=== PATIENT | female | born 1950 | race African-American/Black ===

== ENCOUNTER 2017-02-03 11:36 | Day surgery (SDC) | payer MEDICARE, MEDICAID ==
[~2017-02-03 11:36] MED LIST: LOPRESSOR25 MG PO; METHOTREXATE2.5 MG PO; PROZAC20 MG PO
[2017-02-03 14:55] LABS: BASOPHILS 0.2 % (0-2); EOSINOPHILS 4.8 % (0-7); HEMATOCRIT 38.4 % (36.0-48.0); HEMOGLOBIN 11.8 g/dL (12-16); IMMATURE GRANULOCYTES 0.2 % (0-5); LYMPHOCYTES 25.1 % (15-50); MCHC 30.7 g/dL (31.0-37.0); MEAN PLATELET VOLUME 10.3 fL (7.4-10.4); MONOCYTES 11.8 % (2-11); NEUTROPHILS 57.9 % (40-80); PLATELET COUNT 222 10x3/uL (130-400); RBC 4.22 10x6/uL (4.00-5.40); RDW 16.8 % (11.5-14.5); WBC 5.3 10x3/uL (4.8-10.8)
[2017-02-03 15:07] LABS: CALC OSMOLALITY 270 mosm/kg (275-300); CALCIUM 8.8 mg/dL (8.5-10.1); CHLORIDE - SERUM 103 mmol/L (98-107); CREATININE - SERUM 0.2 mg/dL (0.6-1.3); GLUCOSE 98 mg/dL (74-106); POTASSIUM - SERUM 5.1 mmol/L (3.5-5.1); SODIUM 137 mmol/L (136-145); UREA NITROGEN 5 mg/dL (7-18); eGFR NON AFRICAN AMERICAN > 90 mL/min (90-120)
== END 2017-02-03 16:45 | disposition home or self-care (01) ==
LOC: D.OPS 11:36
PROVIDERS: Anesthesiology
DX: Z12.11 Encounter for screening for malignant neoplasm of colon (principal); D12.2 Benign neoplasm of ascending colon; D12.3 Benign neoplasm of transverse colon; K57.30 Diverticulosis of large intestine without perforation or abscess without bleeding; K62.6 Ulcer of anus and rectum; I10 Essential (primary) hypertension; E66.01 Morbid (severe) obesity due to excess calories; Z68.37 Body mass index [BMI] 37.0-37.9, adult; Z01.812 Encounter for preprocedural laboratory examination

== ENCOUNTER 2018-05-13 18:12 | Inpatient (IN) | payer MEDICARE ==
[~2018-05-13] VITALS: Ht 180.3 cm; Wt 113.4 kg
[2018-05-13 19:35] LABS: BASOPHILS 0.1 % (0-2); EOSINOPHILS 0.1 % (0-7); HEMOGLOBIN 11.2 g/dL (12-16); IMMATURE GRANULOCYTES 0.7 % (0-5); LYMPHOCYTES 13.4 % (15-50); MCH 27.7 pg (26.0-34.0); MCHC 31.1 g/dL (31.0-37.0); MCV 89.1 fL (80.0-100.0); MEAN PLATELET VOLUME 10.2 fL (7.4-10.4); NEUTROPHILS 82.7 % (40-80); PLATELET COUNT 255 10x3/uL (130-400); RBC 4.04 10x6/uL (4.00-5.40); RDW 16.4 % (11.5-14.5); WBC 8.8 10x3/uL (4.8-10.8)
[2018-05-13 19:45] LABS: APTT 29.2 SECONDS (22.8-39.4); INR 1.21 (0.85-1.17); PROTIME 14.9 SECONDS (11.6-15.0)
[2018-05-13 19:46] LABS: D-DIMER-QUANTITATIVE 1.27 ug/mLFEU (0.20-0.54)
[2018-05-13 19:48] LABS: ALBUMIN 2.4 g/dL (3.4-5.0); ALKALINE PHOSPHATASE 62 U/L (46-116); ALT (SGPT) 9 U/L (10-68); BILIRUBIN - TOTAL 0.47 mg/dL (0.2-1.3); CALC OSMOLALITY 270 mosm/kg (275-300); CALCIUM 7.7 mg/dL (8.5-10.1); CHLORIDE - SERUM 101 mmol/L (98-107); CREATININE - SERUM 0.3 mg/dL (0.6-1.3); GLUCOSE 124 mg/dL (74-106); PROTEIN - SERUM 7.4 g/dL (6.4-8.2); SODIUM 136 mmol/L (136-145); UREA NITROGEN 8 mg/dL (7-18); eGFR NON AFRICAN AMERICAN > 90 mL/min (90-120)
[2018-05-13 19:59] LABS: CKMB 0.6 U/L (0.0-3.6); CREATINE KINASE 50 UL (21-215)
[2018-05-13 20:00] LABS: TROPONIN-I < 0.017 ng/mL (0.000-0.060)
[2018-05-13 20:53] VITALS: BP 106/64
[2018-05-13 22:58] VITALS: BP 157/106; BMI 34.9
[2018-05-14] VITALS: BP 157/106
[2018-05-14 04:00] VITALS: BP 121/54
[2018-05-14 07:45] VITALS: BP 139/64
[2018-05-14 11:26] VITALS: BP 137/70
[2018-05-14 12:24] LABS: % SATURATION 10 % (15-55); IRON 13 ug/dl (35-150); TOTAL IRON BIND CAPACITY 120 ug/dl (260-445); UNSAT IRON BIND CAPACITY 107 ug/dl (150-375)
[2018-05-14 15:06] VITALS: BP 117/60
[2018-05-14 20:08] VITALS: BP 121/61
[2018-05-15 02:34] VITALS: BP 146/70
[2018-05-15 05:55] LABS: BASOPHILS 0.1 % (0-2); EOSINOPHILS 3.7 % (0-7); HEMATOCRIT 32.2 % (36.0-48.0); HEMOGLOBIN 9.8 g/dL (12-16); IMMATURE GRANULOCYTES 0.1 % (0-5); LYMPHOCYTES 12.6 % (15-50); MCH 27.8 pg (26.0-34.0); MCHC 30.4 g/dL (31.0-37.0); MONOCYTES 7.1 % (2-11); NEUTROPHILS 76.4 % (40-80); PLATELET COUNT 224 10x3/uL (130-400); RBC 3.53 10x6/uL (4.00-5.40); RDW 16.3 % (11.5-14.5); WBC 7.8 10x3/uL (4.8-10.8)
[2018-05-15 06:12] LABS: CALC OSMOLALITY 270 mosm/kg (275-300); CALCIUM 7.9 mg/dL (8.5-10.1); CARBON DIOXIDE 30.3 mmol/L (21.0-32.0); CHLORIDE - SERUM 103 mmol/L (98-107); CREATININE - SERUM 0.3 mg/dL (0.6-1.3); GLUCOSE 111 mg/dL (74-106); POTASSIUM - SERUM 3.9 mmol/L (3.5-5.1); SODIUM 136 mmol/L (136-145); UREA NITROGEN 6 mg/dL (7-18); eGFR NON AFRICAN AMERICAN > 90 mL/min (90-120)
[2018-05-15 06:28] VITALS: BP 115/60
[2018-05-15 06:32] LABS: MCV 91.2 fL (80.0-100.0)
[2018-05-15 08:32] VITALS: BP 133/70
[2018-05-15 11:30] VITALS: BP 134/54
[2018-05-15 16:51] VITALS: BP 144/70
[2018-05-15 19:55] VITALS: BP 128/58
[2018-05-16 00:54] VITALS: BP 126/58
[2018-05-16 04:00] VITALS: BP 128/64
[2018-05-16 05:29] LABS: BASOPHILS 0.4 % (0-2); EOSINOPHILS 6.7 % (0-7); HEMATOCRIT 32.2 % (36.0-48.0); HEMOGLOBIN 9.7 g/dL (12-16); IMMATURE GRANULOCYTES 0.2 % (0-5); LYMPHOCYTES 21.1 % (15-50); MCH 27.5 pg (26.0-34.0); MCHC 30.1 g/dL (31.0-37.0); MCV 91.2 fL (80.0-100.0); MEAN PLATELET VOLUME 10.1 fL (7.4-10.4); MONOCYTES 9.9 % (2-11); NEUTROPHILS 61.7 % (40-80); PLATELET COUNT 247 10x3/uL (130-400); RBC 3.53 10x6/uL (4.00-5.40); RDW 16.1 % (11.5-14.5)
[2018-05-16 05:31] LABS: WBC 5.4 10x3/uL (4.8-10.8)
[2018-05-16 05:47] LABS: CALC OSMOLALITY 276 mosm/kg (275-300); CARBON DIOXIDE 32.1 mmol/L (21.0-32.0); CHLORIDE - SERUM 104 mmol/L (98-107); GLUCOSE 124 mg/dL (74-106); POTASSIUM - SERUM 3.7 mmol/L (3.5-5.1); SODIUM 139 mmol/L (136-145); UREA NITROGEN 6 mg/dL (7-18)
[2018-05-16 05:50] LABS: CREATININE - SERUM 0.4 mg/dL (0.6-1.3); eGFR NON AFRICAN AMERICAN > 90 mL/min (90-120)
[2018-05-16 07:30] LABS: FOLATE (FOLIC ACID) - SERUM >20.0 ng/mL (>3.0)
[2018-05-16 08:45] VITALS: BP 125/68
[2018-05-16 11:22] LABS: APPEARANCE HAZY (CLEAR); BACTERIA FEW /hpf (NONE SEEN); BILIRUBIN NEGATIVE (NEGATIVE); COLOR DK YELLOW (YELLOW); EPITHELIAL CELLS OCC /hpf (0-5); GLUCOSE NEGATIVE (NEGATIVE); KETONE SMALL mg/dL (NEGATIVE); NITRITE NEGATIVE (NEGATIVE); PROTEIN NEGATIVE (NEGATIVE); RED CELLS - URINE OCC /hpf (0-5); SPECIFIC GRAVITY 1.015 (1.005-1.020); WHITE CELLS - URINE RARE /hpf (0-5)
[2018-05-16 11:23] LABS: MUCUS <1+ /lpf (NONE SEEN)
[2018-05-16 12:36] VITALS: BP 126/67
[2018-05-16 13:19] VITALS: Ht 180.3 cm; Wt 113.4 kg
[2018-05-16 16:36] VITALS: BP 128/63
[2018-05-16 20:23] VITALS: BP 144/81
[2018-05-17 04:00] VITALS: BP 127/70
[2018-05-17 08:47] LABS: BASOPHILS 0.4 % (0-2); EOSINOPHILS 3.6 % (0-7); HEMATOCRIT 33.1 % (36.0-48.0); IMMATURE GRANULOCYTES 0.6 % (0-5); MCH 27.3 pg (26.0-34.0); MCHC 30.2 g/dL (31.0-37.0); MCV 90.4 fL (80.0-100.0); MONOCYTES 11.2 % (2-11); NEUTROPHILS 67.2 % (40-80); PLATELET COUNT 246 10x3/uL (130-400); RBC 3.66 10x6/uL (4.00-5.40); RDW 16.3 % (11.5-14.5)
[2018-05-17 08:49] LABS: WBC 6.9 10x3/uL (4.8-10.8)
[2018-05-17 08:57] LABS: CALC OSMOLALITY 275 mosm/kg (275-300); CALCIUM 8.4 mg/dL (8.5-10.1); CARBON DIOXIDE 31.1 mmol/L (21.0-32.0); CHLORIDE - SERUM 103 mmol/L (98-107); CREATININE - SERUM 0.4 mg/dL (0.6-1.3); GLUCOSE 122 mg/dL (74-106); POTASSIUM - SERUM 3.9 mmol/L (3.5-5.1); SODIUM 139 mmol/L (136-145); eGFR NON AFRICAN AMERICAN > 90 mL/min (90-120)
[2018-05-17 08:59] LABS: UREA NITROGEN 4 mg/dL (7-18)
[2018-05-17] MEDS ORDERED: LEVAQUIN750 MG PO (09:05)
[2018-05-17 09:09] VITALS: BP 130/84
== END 2018-05-17 11:31 | disposition home health service (06) | DRG 871 ==
LOC: D.ER 18:12 → D.MS 21:01
PROVIDERS: Family Medicine; Internal Medicine Nephrology; Nurse Practitioner Family
DX: A41.9 Sepsis, unspecified organism (principal); J18.9 Pneumonia, unspecified organism; R53.2 Functional quadriplegia; J96.01 Acute respiratory failure with hypoxia; G12.21 Amyotrophic lateral sclerosis; I10 Essential (primary) hypertension; R13.12 Dysphagia, oropharyngeal phase; R47.1 Dysarthria and anarthria; D50.9 Iron deficiency anemia, unspecified

== ENCOUNTER 2019-01-08 10:08 | Inpatient (IN) | payer MEDICARE ==
[~2019-01-08] VITALS: Ht 180.3 cm; Wt 119.7 kg
[~2019-01-08 10:08] MED LIST changes: +LEVAQUIN750 MG PO
[2019-01-08 11:15] LABS: BASOPHILS 0.1 % (0-2); EOSINOPHILS 2.4 % (0-7); HEMATOCRIT 36.7 % (36.0-48.0); HEMOGLOBIN 11.4 g/dL (12-16); IMMATURE GRANULOCYTES 0.3 % (0-5); LYMPHOCYTES 12.4 % (15-50); MCH 27.1 pg (26.0-34.0); MCHC 31.1 g/dL (31.0-37.0); MCV 87.4 fL (80.0-100.0); MONOCYTES 7.5 % (2-11); NEUTROPHILS 77.3 % (40-80); PLATELET COUNT 275 10x3/uL (130-400); RDW 16.4 % (11.5-14.5); WBC 9.3 10x3/uL (4.8-10.8)
[2019-01-08 11:45] LABS: ALBUMIN 2.3 g/dL (3.4-5.0); ALKALINE PHOSPHATASE 64 U/L (46-116); ALT (SGPT) 13 U/L (10-68); CALC OSMOLALITY 248 mosm/kg (275-300); CARBON DIOXIDE 35.3 mmol/L (21.0-32.0); CHLORIDE - SERUM 86 mmol/L (98-107); CREATININE - SERUM 0.3 mg/dL (0.6-1.3); GLUCOSE 132 mg/dL (74-106); POTASSIUM - SERUM 4.2 mmol/L (3.5-5.1); PROTEIN - SERUM 7.7 g/dL (6.4-8.2); SODIUM 124 mmol/L (136-145); UREA NITROGEN 5 mg/dL (7-18); eGFR NON AFRICAN AMERICAN > 90 mL/min (90-120)
[2019-01-08 11:57] LABS: CKMB 1.1 U/L (0.0-3.6); CREATINE KINASE 46 UL (21-215); PRO BNP 2871 pg/mL (0-125); TROPONIN-I < 0.017 ng/mL (0.000-0.060)
--- NOTE | 2019-01-08 13:00 | MORECARE ---
CASE MANAGEMENT DISCHARGE SUMMARY PATIENT: AFIA ESCOBAR UNIT: [id number] ADM DATE: 01/08/19 AGE: 68 : 49 SEX: F ROOM/BED: D.2239 AUTHOR: BERHANE BARNES PHYSICIAN: REFERRING PHYSICIAN: ASHISH PEDRO DO DATE OF SERVICE: 01/08/19 Discharge Plan Patient Name: AFIA ESCOBAR [facility] [facility] 1950 Planned Disposition: Home Anticipated Discharge Date: 01/10/19 Discharge Date: Expected LOS: 2 Initial Reviewer: [email or web address] Initial Review Date: 01/08/2019 Generated: 01/08/19 2:00 pm Patient Name: AFIA ESCOBAR Page 19992 at 1300 All edits/amendments must be made on the electronic document DICTATION DATE: 01/08/19 1259 WANT AD RECEIVER: ALEX 01/08/19 1259 RPT#: [id number] DC DATE: STATUS: ADM IN [facility] [address] [place] [address] END OF REPORT
--- NOTE | 2019-01-08 13:08 | MORECARE ---
CASE MANAGEMENT DISCHARGE SUMMARY PATIENT: AFIA ESCOBAR UNIT: [id number] ADM DATE: 01/08/19 AGE: 68 : 49 SEX: F ROOM/BED: D.2239 AUTHOR: BERHANE BARNES PHYSICIAN: REFERRING PHYSICIAN: ASHISH PEDRO DO DATE OF SERVICE: 01/08/19 Discharge Plan Patient Name: AFIA ESCOBAR Facility: [facility]:[place] : 1950 Planned Disposition: Home Anticipated Discharge Date: 01/10/19 Discharge Date: Expected LOS: 2 Initial Reviewer: [email or web address] Initial Review Date: 01/08/2019 Generated: 01/08/19 2:07 pm DCP- Discharge Planning Updated by [email or web address]: Alecia Dennis on 01/08/19 12:[address] Patient Name: AFIA ESCOBAR Admission Status: ER Accout number: [id number] Admission Date: 01-08-2019 : 1950 Admission Diagnosis: Attending: ASHISH PEDRO Current LOS: 1 Anticipated DC Date: 01-10-2019 Planned Disposition: Home Primary Insurance: MEDICARE A & B Discharge Planning Comments: CM met with patient and her brother to complete initial dc planning assessment. CM educated patient on the CM role and verbal consent given by patient to complete assessment. Patient lives at home with her brother and reports she requires assistance with all of her ADL's. She reports she is wheelchair bound and does not ambulate. Patient currently has [facility] and wishes to resume at discharge. CM spoke to [employer] and notified her of patients admission. PAIGE form signed by patient's brother for resumption of Home Health. Signed form placed in chart and signed form given to patient. Patient also has cg services through [employer]. They assist her 5 days a week for 2-3 hours a day. Patient's brother made them aware she is being admitted into the hospital. At discharge patient plans to return home with her brother and feels this is a safe discharge. Patient denied further known discharge needs at this time. CM will continue to follow and will assist as needed with dc plans/needs. Tire Room Supervisor: Alecia Dennis RN, [facility] DCPIA - Discharge Planning Initial Assessment Updated by [email or web address]: Alecia Dennis on 01/08/19 1:01 pm * Is the patient Alert and Oriented? Yes * How many steps to enter\exit or inside your home? None * PCP Dr. Margarette Kan * Pharmacy [facility] in [place] * Preadmission Environment Home with Family * ADLs Total Dependent * Equipment Bedside Commode Rolling Walker Wheelchair * Other Equipment Patient reports she is wheelchair bound and that she requires assistance with all ADL's. * List name and contact numbers for known caregivers / representatives who currently or will assist patient after discharge: Marin Cho - brother - [phone] Bandar Chahal - sister - [phone] * Verbal permission to speak to the caregivers and representatives has been obtained from the patient. Yes * Community resources currently utilized Home Health Private Duty Care * Please name any agencies selected above. [employer] [phone] * Additional services required to return to the preadmission environment? No * Can the patient safely return to the preadmission environment? Yes * Has this patient been hospitalized within the prior 30 days at any hospital? No Last DP export: 01/08/19 12:00 pm Patient Name: AFIA ESCOBAR Page 18545 at 1308 All edits/amendments must be made on the electronic document DICTATION DATE: 01/08/19 1307 REGIONAL DIRECTOR: ALEX 01/08/19 1307 RPT#: [id number] DC DATE: STATUS: ADM IN [facility] [address] [place] [address] END OF REPORT
[2019-01-08] MEDS ORDERED: MUCINEX600 MG PO (13:20)
[2019-01-08] MEDS ORDERED: VITAMIN D10000 UNI1 PO (13:20)
[2019-01-08] MEDS ORDERED: FLUTICASONE PRO16 GM NASAL (13:21)
[2019-01-08] MEDS ORDERED: FOLIC ACID1 MG PO (13:21)
[2019-01-08] MEDS ORDERED: METHOTREXATE2.5 MG PO (13:22)
[2019-01-08] MEDS ORDERED: TOPROL XL25 MG PO (13:22)
[2019-01-08] MEDS ORDERED: PROTONIX40 MG PO (13:22)
[2019-01-08] MEDS ORDERED: PAMELOR10 MG (13:22)
--- NOTE | 2019-01-08 13:30 | NUR ---
RECEIVED TO ROOM 2239 VIA STRETCHER FROM ER. A/O X3. SKIN INTACT WITHOUT REDNESS. FAMILY AT BEDSIDE. SL TO RIGHT FOREARM. INCONTINENT OF URINE, CLOTHING WAS WET. CHANGED PER STAFF. DENIES NEEDS.
[2019-01-08 13:42] VITALS: BP 156/69; BMI 36.9
--- NOTE | 2019-01-08 15:32 | NUR ---
I have reviewed this patient and I concur with the Shift Assessment completed by the Licensed Practical Nurse today this shift.
--- NOTE | 2019-01-08 15:32 | NUR ---
I have reviewed this patient and I concur with the Shift Assessment completed by the Licensed Practical Nurse today this shift.
--- NOTE | 2019-01-08 15:50 | NUR ---
ATTEMPTED TO SITE 20 G X'S 2 WITHOUT SUCCESS. SPOKE WITH DR. PEDRO AND CHANGED ORDER TO VQ SCAN.
--- NOTE | 2019-01-08 16:15 | NUR ---
OFF UNIT VIA BED FOR SCAN.
--- NOTE | 2019-01-08 17:50 | NUR ---
SITTING UP IN BED EATING SUPPER. DENIES NEEDS.
[2019-01-08 20:00] VITALS: BP 133/77
[2019-01-09] VITALS: BP 129/78
--- NOTE | 2019-01-09 02:35 | NUR ---
REC'D AT [facility]. OF SHIFT EYES CLOSED RESP DEEP AND EVEN. WILL CONTINUE TO MONITOR FOR ANY CHGES AND FOLLOW CURRENT PLAN OF CARE FALL PRECAUTIONS REMAIS IN PROGRESS.
[2019-01-09 04:00] VITALS: BP 126/72
--- NOTE | 2019-01-09 04:59 | NUR ---
I have reviewed this patient and I concur with the Shift Assessment completed by the Licensed Practical Nurse today this shift.
[2019-01-09 07:26] LABS: CALC OSMOLALITY 266 mosm/kg (275-300); CALCIUM 8.7 mg/dL (8.5-10.1); CARBON DIOXIDE 36.1 mmol/L (21.0-32.0); CHLORIDE - SERUM 95 mmol/L (98-107); GLUCOSE 149 mg/dL (74-106); POTASSIUM - SERUM 3.9 mmol/L (3.5-5.1); SODIUM 133 mmol/L (136-145); UREA NITROGEN 6 mg/dL (7-18)
[2019-01-09 07:28] LABS: CREATININE - SERUM 0.5 mg/dL (0.6-1.3); eGFR NON AFRICAN AMERICAN > 90 mL/min (90-120)
[2019-01-09 07:35] LABS: BASOPHILS 0 % (0-2); EOSINOPHILS 0 % (0-7); HEMATOCRIT 37.3 % (36.0-48.0); HEMOGLOBIN 11.7 g/dL (12-16); IMMATURE GRANULOCYTES 0.3 % (0-5); LYMPHOCYTES 5.9 % (15-50); MCH 28.1 pg (26.0-34.0); MCHC 31.4 g/dL (31.0-37.0); MEAN PLATELET VOLUME 10.1 fL (7.4-10.4); NEUTROPHILS 86.8 % (40-80); PLATELET COUNT 319 10x3/uL (130-400); RBC 4.17 10x6/uL (4.00-5.40); RDW 16.5 % (11.5-14.5)
[2019-01-09 07:49] LABS: MCV 89.4 fL (80.0-100.0); WBC 11.8 10x3/uL (4.8-10.8)
[2019-01-09 09:12] VITALS: BP 123/63
--- NOTE | 2019-01-09 09:13 | NUR ---
PT SITING UP IN BED EATING BREAKFAST. A/O TO PERSON AND PLACE. PT UNABLE TO TELL ME HER . BEDFAST. LT SIDED WEAKNESS. O2 2L VIA NC. L FOREARM IV, NS @ 75 CC/HR, NO REDNESS OR EDEMA NOTED. SINUS TACH ON TELE. INCONTINENT AT TIMES. INFORMED PT THAT I NEEDED A URINE SAMPLE IF SHE NEEDED TO GO TO THE BATHROOM. COUGHING GREEN SPUTUM. WHEEZES AUSCULTATED. RADIAL/PEDAL PULSES WEAK. ASSISTED PT IN FILLING OUT LUNCH/DINNER MENU. NO FURTHER CONERNS AT THIS TIME. BED LOWERED AND LOCKED. CL IN REACH. WILL CPOC.
--- NOTE | 2019-01-09 10:19 | NUR ---
ASSISTED PT IN INCONTINENT CARE. FULL LINEN CHANGE. PULLED UP TO [facility]. IV TO L FOREARM PATENT. NO REDNESS OR EDEMA. WILL PCOC.
--- NOTE | 2019-01-09 11:37 | NUR ---
INFORMED PT TO SPIT SPUTUM INTO COLLECTION CONTAINER.
[2019-01-09 14:08] VITALS: BP 99/74
[2019-01-09 15:27] VITALS: Ht 180.3 cm; Wt 119.7 kg
--- NOTE | 2019-01-09 17:14 | NUR ---
INCONTINENT CARE PROVIDED. NEW LINENS. IV TO L FOREARM, NO EDEMA, NO REDNESS. WILL CPOC.
--- NOTE | 2019-01-09 18:15 | NUR ---
I have reviewed this patient and I concur with the Shift Assessment completed by the Licensed Practical Nurse today this shift.
[2019-01-09 18:36] VITALS: BP 146/77
--- NOTE | 2019-01-09 20:23 | NUR ---
REC'D IN BED EYES CLOSED RESP. DEEP AND EVEN INCONT. OF URINE. PERICARE GIVEN.TURNED TO LEFT SIDE. WILL CONTINUE TO MONITOR FOR ANY CHGES. AND FOLLOW CURRENT PLAN OF CARE.
[2019-01-09 21:21] VITALS: BP 105/70
[2019-01-10 04:39] VITALS: BP 134/67
--- NOTE | 2019-01-10 07:26 | NUR ---
I CONCUR WITH RUBBER GOODS REPAIRER ASSESSMENT.
[2019-01-10 08:03] LABS: BASOPHILS 0.1 % (0-2); EOSINOPHILS 0 % (0-7); HEMOGLOBIN 10.2 g/dL (12-16); IMMATURE GRANULOCYTES 0.4 % (0-5); LYMPHOCYTES 7.3 % (15-50); MCH 27.1 pg (26.0-34.0); MCV 90.2 fL (80.0-100.0); MEAN PLATELET VOLUME 9.6 fL (7.4-10.4); MONOCYTES 12.3 % (2-11); NEUTROPHILS 79.9 % (40-80); PLATELET COUNT 283 10x3/uL (130-400); RBC 3.77 10x6/uL (4.00-5.40); RDW 16.6 % (11.5-14.5); WBC 11.3 10x3/uL (4.8-10.8)
--- NOTE | 2019-01-10 08:11 | NUR ---
REC'D IN WALKING ROUNDS RESTING WITH EYES CLOSED. RESP EVEN AND UNLABORED WITH ON DISTRESS NOTED. INCONT OF B/B. ASSESSMENT COMPLETED. C/L IN REACH AT BEDSIDE.
[2019-01-10 08:17] LABS: IMMUNOGLOBULIN A 540 mg/dL (87-352); IMMUNOGLOBULIN G 1991 mg/dL (700-1600)
[2019-01-10 08:21] LABS: ALBUMIN 1.8 g/dL (3.4-5.0); ALKALINE PHOSPHATASE 52 U/L (46-116); BILIRUBIN - TOTAL 0.48 mg/dL (0.2-1.3); CALC OSMOLALITY 268 mosm/kg (275-300); CALCIUM 8.4 mg/dL (8.5-10.1); CARBON DIOXIDE 38.4 mmol/L (21.0-32.0); CHLORIDE - SERUM 97 mmol/L (98-107); GLUCOSE 124 mg/dL (74-106); POTASSIUM - SERUM 3.4 mmol/L (3.5-5.1); PROTEIN - SERUM 7.4 g/dL (6.4-8.2); SODIUM 135 mmol/L (136-145); UREA NITROGEN 7 mg/dL (7-18)
[2019-01-10 08:24] LABS: ALT (SGPT) 7 U/L (10-68); CREATININE - SERUM 0.3 mg/dL (0.6-1.3); eGFR NON AFRICAN AMERICAN > 90 mL/min (90-120)
[2019-01-10 09:35] VITALS: BP 127/63
[2019-01-10 13:51] VITALS: BP 130/67
--- NOTE | 2019-01-10 15:07 | NUR ---
NUTRITION F/U CHART REVIEWED, PT VISIT. TOLERATING REG DIET BUT INTAKE LIMITED PT REQUIRES ASSIST AND STATES HER DENTURES ARE AT HOME. DIET CHANGED TO [facility] SOFT UNTIL PT RECEIVES DENTURES OR DISCHARGES. RD FOLLOWING
[2019-01-10 16:12] LABS: ANA REFLEX - ANTICHROMATIN ABS <0.2 AI (0.0-0.9); ANA REFLEX - CENTROMERE B ABS <0.2 AI (0.0-0.9); ANA REFLEX - DBL STRANDED DNA <1 IU/mL (0-9); ANA REFLEX - DIRECT Positive (Negative); ANA REFLEX - JO-1 AB <0.2 AI (0.0-0.9); ANA REFLEX - RNP ANTIBODIES 0.3 AI (0.0-0.9); ANA REFLEX - SCL-70 <0.2 AI (0.0-0.9); ANA REFLEX - SJOGRENS AB SSA >8.0 AI (0.0-0.9); ANA REFLEX - SJOGRENS AB SSB <0.2 AI (0.0-0.9); ANA REFLEX - SMITH AB <0.2 AI (0.0-0.9)
[2019-01-10 18:07] VITALS: BP 124/66
--- NOTE | 2019-01-10 20:57 | NUR ---
OT NOTE: PT COMPLETED RUE AROM EXS. PT COMPLETED LUE AAROM WITHIN AVAILABL ROM. PT COMPLETED LUE POSITIONING TO DECREASE RISK OF SKIN BREAKDOWN. THANK YOU, ANDREW SWEENEY
[2019-01-11 00:30] VITALS: BP 137/52; BP 151/74
[2019-01-11 04:00] VITALS: BP 134/60
--- NOTE | 2019-01-11 05:22 | NUR ---
I AGREE WITH MODEL SET ARTIST ASSESSMENT.
[2019-01-11 06:53] LABS: BASOPHILS 0.1 % (0-2); EOSINOPHILS 0 % (0-7); HEMATOCRIT 35.4 % (36.0-48.0); HEMOGLOBIN 10.3 g/dL (12-16); IMMATURE GRANULOCYTES 0.4 % (0-5); LYMPHOCYTES 4.3 % (15-50); MCH 26.5 pg (26.0-34.0); MCHC 29.1 g/dL (31.0-37.0); MCV 91.2 fL (80.0-100.0); MEAN PLATELET VOLUME 10.8 fL (7.4-10.4); MONOCYTES 6.9 % (2-11); NEUTROPHILS 88.3 % (40-80); RBC 3.88 10x6/uL (4.00-5.40); RDW 16.9 % (11.5-14.5); WBC 10.3 10x3/uL (4.8-10.8)
[2019-01-11 06:55] LABS: PLATELET COUNT 347 10x3/uL (130-400)
[2019-01-11 06:58] LABS: ALBUMIN 1.8 g/dL (3.4-5.0); ALKALINE PHOSPHATASE 55 U/L (46-116); ALT (SGPT) 10 U/L (10-68); CALC OSMOLALITY 274 mosm/kg (275-300); CALCIUM 8.8 mg/dL (8.5-10.1); CARBON DIOXIDE 38.3 mmol/L (21.0-32.0); CHLORIDE - SERUM 98 mmol/L (98-107); CREATININE - SERUM 0.3 mg/dL (0.6-1.3); GLUCOSE 150 mg/dL (74-106); POTASSIUM - SERUM 3.8 mmol/L (3.5-5.1); PROTEIN - SERUM 7.8 g/dL (6.4-8.2); SODIUM 137 mmol/L (136-145); UREA NITROGEN 8 mg/dL (7-18); eGFR NON AFRICAN AMERICAN > 90 mL/min (90-120)
[2019-01-11 09:14] VITALS: BP 141/66
[2019-01-11 11:19] LABS: ANGIOTENSIN CONVERTING ENZYME 23 U/L (14-82)
[2019-01-11 12:27] VITALS: BP 121/49
[2019-01-11 17:57] VITALS: BP 126/59
--- NOTE | 2019-01-11 18:13 | NUR ---
I have reviewed this patient and I concur with the Shift Assessment completed by the Licensed Practical Nurse today this shift.
--- NOTE | 2019-01-11 18:24 | NUR ---
IV RESITED TO RIGHT HANDX 1 ATTEMPT 22G, PREVIOUS IV DC'D DUE TO SWELLING AT SITE TOLERATED WELL CALL LIGHT IN REACH
[2019-01-11 20:23] VITALS: BP 141/68
[2019-01-12 01:34] VITALS: BP 150/78
[2019-01-12 07:28] LABS: BASOPHILS 0.2 % (0-2); EOSINOPHILS 0 % (0-7); HEMATOCRIT 37.2 % (36.0-48.0); HEMOGLOBIN 10.9 g/dL (12-16); IMMATURE GRANULOCYTES 0.6 % (0-5); LYMPHOCYTES 8.5 % (15-50); MCH 26.7 pg (26.0-34.0); MCHC 29.3 g/dL (31.0-37.0); MCV 91.2 fL (80.0-100.0); MEAN PLATELET VOLUME 10.2 fL (7.4-10.4); MONOCYTES 12.8 % (2-11); NEUTROPHILS 77.9 % (40-80); PLATELET COUNT 416 10x3/uL (130-400); RBC 4.08 10x6/uL (4.00-5.40); RDW 17.2 % (11.5-14.5)
[2019-01-12 07:39] LABS: ALBUMIN 1.8 g/dL (3.4-5.0); ALKALINE PHOSPHATASE 51 U/L (46-116); ALT (SGPT) 10 U/L (10-68); BILIRUBIN - TOTAL 0.17 mg/dL (0.2-1.3); CALC OSMOLALITY 279 mosm/kg (275-300); CALCIUM 8.1 mg/dL (8.5-10.1); CARBON DIOXIDE 38.6 mmol/L (21.0-32.0); CHLORIDE - SERUM 100 mmol/L (98-107); CREATININE - SERUM 0.3 mg/dL (0.6-1.3); GLUCOSE 131 mg/dL (74-106); POTASSIUM - SERUM 3.9 mmol/L (3.5-5.1); PROTEIN - SERUM 6.8 g/dL (6.4-8.2); SODIUM 139 mmol/L (136-145); eGFR NON AFRICAN AMERICAN > 90 mL/min (90-120)
[2019-01-12 07:45] LABS: UREA NITROGEN 12 mg/dL (7-18)
--- NOTE | 2019-01-12 07:45 | NUR ---
SITTING UP RIGHT IN BED, RECIEVING BREATHING TREATMENT, ON TELEMETRY, USES 02 AT 2LPM, AWAKE AND ALERT, ORIENTED X4, INCONTIENT, RIGHT HAND IV PATENT, INFUSING NS AT 75 ML/HR, DENIES ANY CURRENT NEEDS OR DISCOMFORTS, BED LOWERED AND LOCKED, CALL LIGHT WITHIN REACH. CPOC
[2019-01-12 08:52] VITALS: BP 171/82
[2019-01-12 13:21] VITALS: BP 151/49; BP 159/73
--- NOTE | 2019-01-12 14:08 | MORECARE ---
CASE MANAGEMENT DISCHARGE SUMMARY PATIENT: AFIA ESCOBAR UNIT: [id number] ADM DATE: 01/08/19 AGE: 68 : 49 SEX: F ROOM/BED: D.2239 AUTHOR: BERHANE BARNES PHYSICIAN: REFERRING PHYSICIAN: ASHISH PEDRO DO DATE OF SERVICE: 01/12/19 Discharge Plan Patient Name: AFIA ESCOBAR Facility: [facility]:[place] : 1950 Planned Disposition: Home Anticipated Discharge Date: 01/10/19 Discharge Date: Expected LOS: 2 Initial Reviewer: [email or web address] Initial Review Date: 01/08/2019 Generated: 01/12/19 3:07 pm Comments DCP- Discharge Planning Updated by [email or web address]: Lynda Stuart on 01/12/19 1:[address]. Ortega concerning discharge planning. Dr. Ortega states she probably will be discharged on Tuesday and will write in progress note what nebulizer meds she will need ordered. I have a room air oxygen saturation, but it will need repeated since it will be >48 hours. CM will continue to follow and assist with discharge planning/needs. DCP- Discharge Planning Updated by [email or web address]: Alecia Dennis on 01/08/19 12:[address] Patient Name: AFIA ESCOBAR Admission Status: ER Accout number: [id number] Admission Date: 01-08-2019 : 1950 Admission Diagnosis: Attending: ASHISH PEDRO Current LOS: 1 Anticipated DC Date: 01-10-2019 Planned Disposition: Home Primary Insurance: MEDICARE A & B Discharge Planning Comments: CM met with patient and her brother to complete initial dc planning assessment. CM educated patient on the CM role and verbal consent given by patient to complete assessment. Patient lives at home with her brother and reports she requires assistance with all of her ADL's. She reports she is wheelchair bound and does not ambulate. Patient currently has [facility] and wishes to resume at discharge. CM spoke to [employer] and notified her of patients admission. PAIGE form signed by patient's brother for resumption of Home Health. Signed form placed in chart and signed form given to patient. Patient also has services through [employer]. They assist her 5 days a week for 2-3 hours a day. Patient's brother made them aware she is being admitted into the hospital. At discharge patient plans to return home with her brother and feels this is a safe discharge. Patient denied further known discharge needs at this time. CM will continue to follow and will assist as needed with dc plans/needs. Long Goods Drier: Alecia Dennis RN, [facility] DCPIA - Discharge Planning Initial Assessment Updated by [email or web address]: Alecia Dennis on 01/08/19 1:01 pm * Is the patient Alert and Oriented? Yes * How many steps to enter\exit or inside your home? None * PCP Dr. Margarette Rosario [place] * Pharmacy [facility] in [place] * Preadmission Environment Home with Family * ADLs Total Dependent * Equipment Bedside Commode Rolling Walker Wheelchair * Other Equipment Patient reports she is wheelchair bound and that she requires assistance with all ADL's. * List name and contact numbers for known caregivers / representatives who currently or will assist patient after discharge: Marin Cho - brother - [phone] Bandar Chahal - sister - [phone] * Verbal permission to speak to the caregivers and representatives has been obtained from the patient. Yes * Community resources currently utilized Home Health Private Duty Care * Please name any agencies selected above. [employer] -aide services [phone] * Additional services required to return to the preadmission environment? No * Can the patient safely return to the preadmission environment? Yes * Has this patient been hospitalized within the prior 30 days at any hospital? No Last DP export: 01/08/19 12:08 pm Patient Name: AFIA ESCOBAR Page 64079 at 1408 All edits/amendments must be made on the electronic document DICTATION DATE: 01/12/191406 DEDICATED INTERMODAL TRUCK DRIVER: ALEX 01/12/191406 RPT#: [id number] DC DATE: STATUS: ADM IN [facility] [address] [place] [address] END OF REPORT
[2019-01-12 16:40] VITALS: BP 167/84
--- NOTE | 2019-01-12 19:13 | NUR ---
I have reviewed this patient and I concur with the Shift Assessment completed by the Licensed Practical Nurse today this shift.
[2019-01-13] VITALS: BP 165/70
[2019-01-13 03:00] VITALS: BP 165/89
[2019-01-13 06:40] LABS: BASOPHILS 0.2 % (0-2); EOSINOPHILS 0 % (0-7); HEMATOCRIT 33.5 % (36.0-48.0); HEMOGLOBIN 9.8 g/dL (12-16); IMMATURE GRANULOCYTES 0.9 % (0-5); LYMPHOCYTES 8.7 % (15-50); MCH 26.6 pg (26.0-34.0); MCHC 29.3 g/dL (31.0-37.0); MCV 90.8 fL (80.0-100.0); MEAN PLATELET VOLUME 9.7 fL (7.4-10.4); MONOCYTES 11.5 % (2-11); NEUTROPHILS 78.7 % (40-80); PLATELET COUNT 455 10x3/uL (130-400); RBC 3.69 10x6/uL (4.00-5.40); RDW 17.4 % (11.5-14.5)
[2019-01-13 07:03] LABS: ALBUMIN 1.7 g/dL (3.4-5.0); ALKALINE PHOSPHATASE 44 U/L (46-116); ALT (SGPT) 8 U/L (10-68); BILIRUBIN - TOTAL 0.21 mg/dL (0.2-1.3); CALC OSMOLALITY 278 mosm/kg (275-300); CALCIUM 8.2 mg/dL (8.5-10.1); CARBON DIOXIDE 37.6 mmol/L (21.0-32.0); CHLORIDE - SERUM 100 mmol/L (98-107); CREATININE - SERUM 0.4 mg/dL (0.6-1.3); GLUCOSE 142 mg/dL (74-106); POTASSIUM - SERUM 3.6 mmol/L (3.5-5.1); PROTEIN - SERUM 6.8 g/dL (6.4-8.2); SODIUM 139 mmol/L (136-145); UREA NITROGEN 10 mg/dL (7-18); eGFR NON AFRICAN AMERICAN > 90 mL/min (90-120)
[2019-01-13 07:05] LABS: WBC 11.5 10x3/uL (4.8-10.8)
[2019-01-13 09:07] VITALS: BP 135/78
--- NOTE | 2019-01-13 10:45 | NUR ---
I have reviewed this patient and I concur with the Shift Assessment completed by the Licensed Practical Nurse today this shift.
[2019-01-13 14:16] VITALS: BP 129/65
[2019-01-13 17:15] VITALS: BP 126/74
[2019-01-13 20:00] VITALS: BP 134/68
[2019-01-14] VITALS: BP 130/60
[2019-01-14 03:00] VITALS: BP 126/65
--- NOTE | 2019-01-14 03:10 | NUR ---
I have reviewed this patient and I concur with the Shift Assessment completed by the Licensed Practical Nurse today this shift.
--- NOTE | 2019-01-14 04:00 | NUR ---
ANSWERED PT CALL LIGHT SHE STATED SHE HAD BEEN LEFT ON BEDPAN FOR HOURS, PT CLEANED AND LINEN CHANGED PER NURSE, NO BREAKDOWN NOTED TO BUTTOCK
--- NOTE | 2019-01-14 08:58 | NUR ---
CRITICAL LAB CALLED IN BY LAB AT A 6.1 K. ORDERED A ABG DUE TO YESTERDAYS VALUE BEING 3.3. STAT ABG RETURNED WITH A K OF 3.4. CALLED LAB TO INFORM THEM OF THE RESULTS WE RECIEVED. THEY ARE STILL PLANNING ON DOING ANOTHER REDRAW D/T OTHER LABS THAT NEED TO BE OBTAINED. I ATTEMPTED TO DRAW EARLIER AND ONLY RECIEVED 1/2ML OF BLOOD RETURN.
[2019-01-14 09:54] VITALS: BP 123/75
[2019-01-14 11:13] LABS: BASOPHILS 0.1 % (0-2); EOSINOPHILS 1.5 % (0-7); HEMATOCRIT 35.5 % (36.0-48.0); HEMOGLOBIN 10.4 g/dL (12-16); IMMATURE GRANULOCYTES 3.6 % (0-5); LYMPHOCYTES 17.1 % (15-50); MCH 26.8 pg (26.0-34.0); MCHC 29.3 g/dL (31.0-37.0); MCV 91.5 fL (80.0-100.0); MEAN PLATELET VOLUME 9.6 fL (7.4-10.4); MONOCYTES 17.5 % (2-11); NEUTROPHILS 60.2 % (40-80); PLATELET COUNT 462 10x3/uL (130-400); RBC 3.88 10x6/uL (4.00-5.40); RDW 17.5 % (11.5-14.5); WBC 13.8 10x3/uL (4.8-10.8)
[2019-01-14 11:44] LABS: ALBUMIN 1.9 g/dL (3.4-5.0); ALKALINE PHOSPHATASE 42 U/L (46-116); ALT (SGPT) 10 U/L (10-68); BILIRUBIN - TOTAL 0.31 mg/dL (0.2-1.3); CALC OSMOLALITY 274 mosm/kg (275-300); CALCIUM 8.3 mg/dL (8.5-10.1); CHLORIDE - SERUM 97 mmol/L (98-107); CREATININE - SERUM 0.3 mg/dL (0.6-1.3); GLUCOSE 104 mg/dL (74-106); POTASSIUM - SERUM 3.2 mmol/L (3.5-5.1); SODIUM 138 mmol/L (136-145); UREA NITROGEN 11 mg/dL (7-18); eGFR NON AFRICAN AMERICAN > 90 mL/min (90-120)
[2019-01-14 11:53] LABS: CARBON DIOXIDE 41.5 mmol/L (21.0-32.0)
[2019-01-14 13:43] VITALS: BP 149/96
--- NOTE | 2019-01-14 16:24 | NUR ---
I have reviewed this patient and I concur with the Shift Assessment completed by the Licensed Practical Nurse today this shift.
[2019-01-14 17:49] VITALS: BP 139/73; BP 140/76
--- NOTE | 2019-01-14 19:15 | NUR ---
RECEIVED REPORT ASSUMED CARE, SLEEPING, NO S/S OF DISTRESS NOTED, CALL LIGHT IN REACH, BED LOWEST POSITION, BREATHING TREATMENT ON AT THIS TIME, AROUSED EASILY TO VOICE, DENIES NEEDS, WILL CONTINUE POC
[2019-01-14 20:00] VITALS: BP 138/67
[2019-01-15] VITALS: BP 130/61
--- NOTE | 2019-01-15 02:30 | NUR ---
ANSWERED PT CALL LIGHT, PT STATED SHE HAD BEEN LEFT ON THE BED CORTEZ ALL NIGHT AND SHE FELL ASLEEP, NO BREAKDOWN NOTED, BED BATH AND LINEN CHANGE PROVIDED WITH FREYA BUTT PASTE APPLIED TO BUTTOCK
[2019-01-15 03:00] VITALS: BP 137/72
--- NOTE | 2019-01-15 04:14 | NUR ---
I have reviewed this patient and I concur with the Shift Assessment completed by the Licensed Practical Nurse today this shift.
[2019-01-15 07:53] LABS: BASOPHILS 0.3 % (0-2); EOSINOPHILS 1.6 % (0-7); HEMATOCRIT 37.1 % (36.0-48.0); HEMOGLOBIN 10.6 g/dL (12-16); IMMATURE GRANULOCYTES 3.2 % (0-5); LYMPHOCYTES 18.8 % (15-50); MCH 26.6 pg (26.0-34.0); MCHC 28.6 g/dL (31.0-37.0); MEAN PLATELET VOLUME 9.9 fL (7.4-10.4); MONOCYTES 17.1 % (2-11); PLATELET COUNT 399 10x3/uL (130-400); RBC 3.99 10x6/uL (4.00-5.40); RDW 17.8 % (11.5-14.5); WBC 10.8 10x3/uL (4.8-10.8)
[2019-01-15 08:10] LABS: ALBUMIN 1.8 g/dL (3.4-5.0); ALKALINE PHOSPHATASE 39 U/L (46-116); ALT (SGPT) 8 U/L (10-68); BILIRUBIN - TOTAL 0.16 mg/dL (0.2-1.3); CALC OSMOLALITY 271 mosm/kg (275-300); CALCIUM 8.1 mg/dL (8.5-10.1); CARBON DIOXIDE 36.6 mmol/L (21.0-32.0); CHLORIDE - SERUM 99 mmol/L (98-107); CREATININE - SERUM 0.3 mg/dL (0.6-1.3); GLUCOSE 89 mg/dL (74-106); MAGNESIUM - SERUM 2.1 mg/dL (1.8-2.4); PROTEIN - SERUM 6.8 g/dL (6.4-8.2); SODIUM 137 mmol/L (136-145); UREA NITROGEN 9 mg/dL (7-18); eGFR NON AFRICAN AMERICAN > 90 mL/min (90-120)
[2019-01-15 08:12] LABS: POTASSIUM - SERUM 4.2 mmol/L (3.5-5.1)
[2019-01-15 11:16] VITALS: BP 117/63
[2019-01-15 14:37] VITALS: BP 138/71
--- NOTE | 2019-01-15 14:42 | NUR ---
PATIENT LAYING ON LEFT SIDE WITH LEFT ARM PROPPED UP ON PILLOW. NO NEEDS AT THIS TIME. WCTM
--- NOTE | 2019-01-15 16:45 | MORECARE ---
CASE MANAGEMENT DISCHARGE SUMMARY PATIENT: AFIA ESCOBAR UNIT: [id number] ADM DATE: 01/08/19 AGE: 68 : 49 SEX: F ROOM/BED: D.2239 AUTHOR: BERHANE BARNES PHYSICIAN: REFERRING PHYSICIAN: ASHISH PEDRO DO DATE OF SERVICE: 01/15/19 Discharge Plan Patient Name: AFIA ESCOBAR Facility: [facility]:[place] : 1950 Planned Disposition: Home Anticipated Discharge Date: 01/10/19 Discharge Date: Expected LOS: 2 Initial Reviewer: [email or web address] Initial Review Date: 01/08/2019 Generated: 01/15/19 5:44 pm Comments DCP- Discharge Planning Updated by [email or web address]: Lynda Stuart on 01/15/19 3:[address] Spoke with patient regarding oxygen company she would like to use, she states she doesn't care. States she spoke with her brother and he states it doesn't matter. I reviewed the companies available and she chooses [employer]. I spoke with RT and asked for a room air sat in the morning. CM will continue to follow and assist with discharge planning/needs. DCP- Discharge Planning Updated by [id number]: Lynda Stuart on 01/12/19 1:[address]. Ortega concerning discharge planning. Dr. Ortgea states she probably will be discharged on Tuesday and will write in progress note what nebulizer meds she will need ordered. I have a room air oxygen saturation, but it will need repeated since it will be >48 hours. CM will continue to follow and assist with discharge planning/needs. DCP- Discharge Planning Updated by [email or web address]: Alecia Dennis on 01/08/19 12:[address] Patient Name: AFIA ESCOBAR Admission Status: ER Accout number: [id number] Admission Date: 01-08-2019 : 1950 Admission Diagnosis: Attending: ASHISH PEDRO Current LOS: 1 Anticipated DC Date: 01-10-2019 Planned Disposition: Home Primary Insurance: MEDICARE A & B Discharge Planning Comments: CM met with patient and her brother to complete initial dc planning assessment. CM educated patient on the CM role and verbal consent given by patient to complete assessment. Patient lives at home with her brother and reports she requires assistance with all of her ADL's. She reports she is wheelchair bound and does not ambulate. Patient currently has [facility] and wishes to resume at discharge. CM spoke to [employer] and notified her of patients admission. PAIGE form signed by patient's brother for resumption of Home Health. Signed form placed in chart and signed form given to patient. Patient also has services through [email or web address]. They assist her 5 days a week for 2-3 hours a day. Patient's brother made them aware she is being admitted into the hospital. At discharge patient plans to return home with her brother and feels this is a safe discharge. Patient denied further known discharge needs at this time. CM will continue to follow and will assist as needed with dc plans/needs. Impregnating Helper: Alecia Dennis RN, [facility] DCPIA - Discharge Planning Initial Assessment Updated by [email or web address]: Alecia Dennis on 01/08/19 1:01 pm * Is the patient Alert and Oriented? Yes * How many steps to enter\exit or inside your home? None * PCP Dr. Pfeiffer - [place] * Pharmacy [facility] in [place] * Preadmission Environment Home with Family * ADLs Total Dependent * Equipment Bedside Commode Rolling Walker Wheelchair * Other Equipment Patient reports she is wheelchair bound and that she requires assistance with all ADL's. * List name and contact numbers for known caregivers / representatives who currently or will assist patient after discharge: Marin Cho - brother - [phone] Bandar Chahal - sister - [phone] * Verbal permission to speak to the caregivers and representatives has been obtained from the patient. Yes * Community resources currently utilized Home Health Private Duty Care * Please name any agencies selected above. [employer] -aide services [phone] * Additional services required to return to the preadmission environment? No * Can the patient safely return to the preadmission environment? Yes * Has this patient been hospitalized within the prior 30 days at any hospital? No Coverage Notice Reviewer: [email or web address] Abraham Stuart Notice Issued Date-Time: 01/15/2019 16:43 Notice Type: Patient Choice Letter Notice Delivered To: Patient Relationship to Patient: Self Hatchery Employee Name: CLAYTON Delivery Method: HAND - Hand Delivered Shala Days: Prior Verbal Notification: Recipient Understood Notice: Yes Recipient Signature: Yes Med Rec Note Co-signed by Attending: Coverage Notice Comment: PAIGE FOR CLAYTON SIGNED Last DP export: 01/12/19 1:08 pm Patient Name: AFIA ESCOBAR Page 21058 at 1645 All edits/amendments must be made on the electronic document DICTATION DATE: 01/15/191643 BED MANAGER: ALEX 01/15/191643 RPT#: [id number] DC DATE: STATUS: ADM IN [facility] [address] [place] [address] END OF REPORT
[2019-01-15 18:12] VITALS: BP 148/82
--- NOTE | 2019-01-15 20:00 | NUR ---
RESTING IN BED, SEE SHIFT ASSESSMENT, CALL LIGHT IN REACH
[2019-01-15 21:57] VITALS: BP 125/51
[2019-01-16 05:19] VITALS: BP 124/56
[2019-01-16 07:22] LABS: BASOPHILS 0.2 % (0-2); EOSINOPHILS 2.1 % (0-7); HEMATOCRIT 33.6 % (36.0-48.0); HEMOGLOBIN 9.7 g/dL (12-16); IMMATURE GRANULOCYTES 3.8 % (0-5); LYMPHOCYTES 20.4 % (15-50); MCH 26.5 pg (26.0-34.0); MCHC 28.9 g/dL (31.0-37.0); MCV 91.8 fL (80.0-100.0); MEAN PLATELET VOLUME 9.6 fL (7.4-10.4); MONOCYTES 17.9 % (2-11); NEUTROPHILS 55.6 % (40-80); PLATELET COUNT 403 10x3/uL (130-400); RBC 3.66 10x6/uL (4.00-5.40); RDW 18.1 % (11.5-14.5); WBC 11.1 10x3/uL (4.8-10.8)
[2019-01-16 08:07] LABS: ALBUMIN 1.8 g/dL (3.4-5.0); ALKALINE PHOSPHATASE 33 U/L (46-116); BILIRUBIN - TOTAL 0.23 mg/dL (0.2-1.3); CALCIUM 7.7 mg/dL (8.5-10.1); CARBON DIOXIDE 37.9 mmol/L (21.0-32.0); CREATININE - SERUM 0.3 mg/dL (0.6-1.3); GLUCOSE 100 mg/dL (74-106); PROTEIN - SERUM 6.3 g/dL (6.4-8.2); UREA NITROGEN 11 mg/dL (7-18); eGFR NON AFRICAN AMERICAN > 90 mL/min (90-120)
[2019-01-16 08:17] LABS: ALT (SGPT) 13 U/L (10-68)
[2019-01-16 08:24] LABS: CALC OSMOLALITY 274 mosm/kg (275-300); CHLORIDE - SERUM 101 mmol/L (98-107); POTASSIUM - SERUM 3.8 mmol/L (3.5-5.1); SODIUM 138 mmol/L (136-145)
[2019-01-16 08:55] VITALS: BP 137/77
[2019-01-16 12:24] VITALS: BP 144/84
--- NOTE | 2019-01-16 13:39 | MORECARE ---
CASE MANAGEMENT DISCHARGE SUMMARY PATIENT: AFIA ESCOBAR UNIT: [id number] ADM DATE: 01/08/19 AGE: 68 : 49 SEX: F ROOM/BED: D.2239 AUTHOR: BERHANE BARNES PHYSICIAN: REFERRING PHYSICIAN: ASHISH PEDRO DO DATE OF SERVICE: 01/16/19 Discharge Plan Patient Name: AFIA ESCOBAR Facility: [facility]:[place] : 1950 Planned Disposition: Home Anticipated Discharge Date: 01/10/19 Discharge Date: Expected LOS: 2 Initial Reviewer: [email or web address] Initial Review Date: 01/08/2019 Generated: 01/16/19 2:39 pm Comments DCP- Discharge Planning Updated by [email or web address]: Lynda Stuart on 01/15/19 3:[address] Spoke with patient regarding oxygen company she would like to use, she states she doesn't care. States she spoke with her brother and he states it doesn't matter. I reviewed the companies available and she chooses [employer]. I spoke with RT and asked for a room air sat in the morning. CM will continue to follow and assist with discharge planning/needs. DCP- Discharge Planning Updated by [email or web address]: Lynda Stuart on 01/12/19 1:[address] Dr. Ortega concerning discharge planning. Dr. Ortega states she probably will be discharged on Tuesday and will write in progress note what nebulizer meds she will need ordered. I have a room air oxygen saturation, but it will need repeated since it will be >48 hours. CM will continue to follow and assist with discharge planning/needs. DCP- Discharge Planning Updated by [id number]: Alecia Dennis on 01/08/19 12:[address] Patient Name: AFIA ESCOBAR Admission Status: ER Accout number: [id number] Admission Date: 01-08-2019 : 1950 Admission Diagnosis: Attending: ASHISH PEDRO Current LOS: 1 Anticipated DC Date: 01-10-2019 Planned Disposition: Home Primary Insurance: MEDICARE A & B Discharge Planning Comments: CM met with patient and her brother to complete initial dc planning assessment. CM educated patient on the CM role and verbal consent given by patient to complete assessment. Patient lives at home with her brother and reports she requires assistance with all of her ADL's. She reports she is wheelchair bound and does not ambulate. Patient currently has [facility] and wishes to resume at discharge. CM spoke to [facility] [employer] and notified her of patients admission. PAIGE form signed by patient's brother for resumption of Home Health. Signed form placed in chart and signed form given to patient. Patient also has services through [employer]. They assist her 5 days a week for 2-3 hours a day. Patient's brother made them aware she is being admitted into the hospital. At discharge patient plans to return home with her brother and feels this is a safe discharge. Patient denied further known discharge needs at this time. CM will continue to follow and will assist as needed with dc plans/needs. Benefits Sales Consultant: Alecia Dennis RN, [facility] DCPIA - Discharge Planning Initial Assessment Updated by [email or web address]: Alecia Dennis on 01/08/19 1:01 pm * Is the patient Alert and Oriented? Yes * How many steps to enter\exit or inside your home? None * PCP Dr. Pfeiffer - [place] * Pharmacy [facility] in [place] * Preadmission Environment Home with Family * ADLs Total Dependent * Equipment Bedside Commode Rolling Walker Wheelchair * Other Equipment Patient reports she is wheelchair bound and that she requires assistance with all ADL's. * List name and contact numbers for known caregivers / representatives who currently or will assist patient after discharge: Marin Cho - brother - [phone] Bandar Chahal - sister - [phone] * Verbal permission to speak to the caregivers and representatives has been obtained from the patient. Yes * Community resources currently utilized Home Health Private Duty Care * Please name any agencies selected above. [employer] -aide services [phone] * Additional services required to return to the preadmission environment? No * Can the patient safely return to the preadmission environment? Yes * Has this patient been hospitalized within the prior 30 days at any hospital? No External Providers External Provider: Juan Next Contact Date: Service Request Date: Service Type: Resolution: Reviewer: Comments: Coverage Notice Reviewer: [email or web address] - Lynda Stuart Notice Issued Date-Time: 01/15/2019 16:43 Notice Type: Patient Choice Letter Notice Delivered To: Patient Relationship to Patient: Self Hair Clipper Power Name: CLAYTON Delivery Method: HAND - Hand Delivered Shala Days: Prior Verbal Notification: Recipient Understood Notice: Yes Recipient Signature: Yes Med Rec Note Co-signed by Attending: Coverage Notice Comment: PAIGE FOR CLAYTON SIGNED Last DP export: 01/15/19 3:45 pm Patient Name: AFIA ESCOBAR Page 35819 at 1339 All edits/amendments must be made on the electronic document DICTATION DATE: 01/16/191338 TELECINE OPERATOR: ALEX 01/16/199 RPT#: [id number] DC DATE: STATUS: ADM IN [facility] [address] [place] [address] END OF REPORT
--- NOTE | 2019-01-16 13:56 | MORECARE ---
CASE MANAGEMENT DISCHARGE SUMMARY PATIENT: AFIA ESCOBAR UNIT: [id number] ADM DATE: 01/08/19 AGE: 68 : 49 SEX: F ROOM/BED: D.2239 AUTHOR: BERHANE BARNES PHYSICIAN: REFERRING PHYSICIAN: ASHISH PEDRO DO DATE OF SERVICE: 01/16/19 Discharge Plan Patient Name: AFIA ESCOBAR Facility: [facility]:[place] : 1950 Planned Disposition: Home Anticipated Discharge Date: 01/10/19 Discharge Date: Expected LOS: 2 Initial Reviewer: [email or web address] Initial Review Date: 01/08/2019 Generated: 01/16/19 2:56 pm Comments DCP- Discharge Planning Updated by [email or web address]: Lynda Narciso on 01/16/19 12:[address] Patient's room air oxygen saturation is 91% and does not qualify for home oxygen. Nebulizer ordered and [employer] called, faxed order and supporting documents to [facility]. CM will continue to follow and assist with discharge planning/needs. DCP- Discharge Planning Updated by [id number]: Lynda Narciso on 01/15/19 3:[address] Spoke with patient regarding oxygen company she would like to use, she states she doesn't care. States she spoke with her brother and he states it doesn't matter. I reviewed the companies available and she chooses [employer]. I spoke with RT and asked for a room air sat in the morning. CM will continue to follow and assist with discharge planning/needs. DCP- Discharge Planning Updated by [email or web address]: Lynda Stuart on 01/12/19 1:[address]. Ortega concerning discharge planning. Dr. Ortega states she probably will be discharged on Tuesday and will write in progress note what nebulizer meds she will need ordered. I have a room air oxygen saturation, but it will need repeated since it will be >48 hours. CM will continue to follow and assist with discharge planning/needs. DCP- Discharge Planning Updated by [email or web address]: Alecia Dennis on 01/08/19 12:[address] Patient Name: AFIA ESCOBAR Admission Status: ER Accout number: [id number] Admission Date: 01-08-2019 : 1950 Admission Diagnosis: Attending: ASHISH PEDRO Current LOS: 1 Anticipated DC Date: 01-10-2019 Planned Disposition: Home Primary Insurance: MEDICARE A & B Discharge Planning Comments: CM met with patient and her brother to complete initial dc planning assessment. CM educated patient on the CM role and verbal consent given by patient to complete assessment. Patient lives at home with her brother and reports she requires assistance with all of her ADL's. She reports she is wheelchair bound and does not ambulate. Patient currently has [employer] [facility] and wishes to resume at discharge. CM spoke to [facility] and notified her of patients admission. PAIGE form signed by patient's brother for resumption of Home Health. Signed form placed in chart and signed form given to patient. Patient also has services through [employer]. They assist her 5 days a week for 2-3 hours a day. Patient's brother made them aware she is being admitted into the hospital. At discharge patient plans to return home with her brother and feels this is a safe discharge. Patient denied further known discharge needs at this time. CM will continue to follow and will assist as needed with dc plans/needs. Conduit Mechanic: Alecia Dennis RN, [facility] DCPIA - Discharge Planning Initial Assessment Updated by [id number]: Alecia Dennis on 01/08/19 1:01 pm * Is the patient Alert and Oriented? Yes * How many steps to enter\exit or inside your home? None * PCP Dr. Margarette Rosario [place] * Pharmacy [facility] in [place] * Preadmission Environment Home with Family * ADLs Total Dependent * Equipment Bedside Commode Rolling Walker Wheelchair * Other Equipment Patient reports she is wheelchair bound and that she requires assistance with all ADL's. * List name and contact numbers for known caregivers / representatives who currently or will assist patient after discharge: Marin Cho - brother - [phone] Bandar Chahal - sister - [phone] * Verbal permission to speak to the caregivers and representatives has been obtained from the patient. Yes * Community resources currently utilized Home Health Private Duty Care * Please name any agencies selected above. [employer] [facility] [phone] * Additional services required to return to the preadmission environment? No * Can the patient safely return to the preadmission environment? Yes * Has this patient been hospitalized within the prior 30 days at any hospital? No Coverage Notice Reviewer: [id number] Abraham Stuart Notice Issued Date-Time: 01/15/2019 16:43 Notice Type: Patient Choice Letter Notice Delivered To: Patient Relationship to Patient: Self [employer] Technician Name: CLAYTON Delivery Method: HAND - Hand Delivered Shala Days: Prior Verbal Notification: Recipient Understood Notice: Yes Recipient Signature: Yes Med Rec Note Co-signed by Attending: Coverage Notice Comment: PAIGE FOR CLAYTON SIGNED Last DP export: 01/16/19 12:39 pm Patient Name: AFIA ESCOBAR Page [id number] at 1356 All edits/amendments must be made on the electronic document DICTATION DATE: 01/16/19 1356 COMPUTER PUBLISHER: ALEX 01/16/19 1356 RPT#: [id number] DC DATE: STATUS: ADM IN [facility] [address] [place] [address] END OF REPORT
--- NOTE | 2019-01-16 14:56 | NUR ---
NUTRITION F/U PT TOLERATING REG [facility] SOFT DIET. 50% INTAKE MOST MEALS. WILL CONTINUE TO PROVIDE DIET, MONITOR PO INTAKE. RD FOLLOWING
--- NOTE | 2019-01-16 15:28 | NUR ---
I have reviewed this patient and I concur with the Shift Assessment completed by the Licensed Practical Nurse today this shift.
[2019-01-16 16:45] VITALS: BP 130/86
--- NOTE | 2019-01-16 20:00 | NUR ---
ALERT RESTING IN BED DENIES PAIN OR NEEDS AT THIS TIME, CALL LIGHT IN REACH, SEE SHIFT ASSESSMENT
[2019-01-16 21:18] VITALS: BP 149/102
[2019-01-17 05:59] VITALS: BP 164/87
[2019-01-17 06:01] LABS: ALBUMIN 1.9 g/dL (3.4-5.0); ALKALINE PHOSPHATASE 36 U/L (46-116); ALT (SGPT) 12 U/L (10-68); BILIRUBIN - TOTAL 0.24 mg/dL (0.2-1.3); CALC OSMOLALITY 274 mosm/kg (275-300); CALCIUM 7.9 mg/dL (8.5-10.1); CARBON DIOXIDE 31.7 mmol/L (21.0-32.0); CHLORIDE - SERUM 102 mmol/L (98-107); GLUCOSE 100 mg/dL (74-106); PROTEIN - SERUM 6.3 g/dL (6.4-8.2); SODIUM 138 mmol/L (136-145); UREA NITROGEN 9 mg/dL (7-18)
[2019-01-17 06:48] LABS: CREATININE - SERUM 0.2 mg/dL (0.6-1.3); eGFR NON AFRICAN AMERICAN > 90 mL/min (90-120)
[2019-01-17 07:00] LABS: HEMATOCRIT 36.5 % (36.0-48.0); HEMOGLOBIN 10.7 g/dL (12-16); MCH 26.8 pg (26.0-34.0); MCHC 29.3 g/dL (31.0-37.0); MCV 91.3 fL (80.0-100.0); MEAN PLATELET VOLUME 9.9 fL (7.4-10.4); PLATELET COUNT 371 10x3/uL (130-400); RDW 18.5 % (11.5-14.5); WBC 7.7 10x3/uL (4.8-10.8)
--- NOTE | 2019-01-17 07:35 | NUR ---
PT RESTING IN BED, EYES OPEN. PT ALERT AND ORIENTED. PT [place]. HEARING AID TO RIGHT EAR. LEFT SIDED WEAKNESS. SCDS PRESENT AND ON. IV TO RIGHT HAND, NS INFUSING @ 20ML/HR. SITE PATENT WITHOUT REDNESS OR SWELLING. PT ON TELEMETRY [address] 102. NO C/O PAIN. NO S/S OF ACUTE DISTRESS NOTED. CALL LIGHT IN REACH. WILL CONTINUE TO MONITOR.
[2019-01-17 08:03] LABS: EOSINOPHILS 1 % (0-7); HYPOCHROMASIA OCC; LYMPHOCYTES 37 % (15-50); MONOCYTES 17 % (2-11); NEUTROPHILS 45 % (40-80); PLATELET ESTIMATE NORMAL
[2019-01-17 09:41] VITALS: BP 142/88
--- NOTE | 2019-01-17 11:55 | NUR ---
I have reviewed this patient and I concur with the Shift Assessment completed by the Licensed Practical Nurse today this shift.
--- NOTE | 2019-01-17 12:42 | MORECARE ---
CASE MANAGEMENT DISCHARGE SUMMARY PATIENT: AFIA ESCOBAR UNIT: [id number] ADM DATE: 01/08/19 AGE: 68 : 49 SEX: F ROOM/BED: D.2239 AUTHOR: MOLLYDOC PHYSICIAN: REFERRING PHYSICIAN: ASHISH PEDRO DO DATE OF SERVICE: 01/17/19 Discharge Plan Patient Name: AFIA ESCOBAR Facility: [facility]:[place] : 1950 Planned Disposition: Home Anticipated Discharge Date: 01/10/19 Discharge Date: Expected LOS: 2 Initial Reviewer: [email or web address] Initial Review Date: 01/08/2019 Generated: 01/17/19 1:42 pm Comments DCP- Discharge Planning Updated by [id number]: Lynda Stuart on 01/17/19 11:[address] FAXED ORDER FOR MEDS AND OVERNIGHT OXYGEN SATURATION TO [facility]. SHE ALREADY HAS THE NEBULIZER IN THE ROOM. CM WILL CONTINUE TO FOLLOW AND ASSIST WITH DISCHARGE PLANNING/NEEDS. DCP- Discharge Planning Updated by [email or web address]: Lynda Stuart on 01/16/19 12:[address] Patient's room air oxygen saturation is 91% and does not qualify for home oxygen. Nebulizer ordered and [employer] called, faxed order and supporting documents to [facility]. CM will continue to follow and assist with discharge planning/needs. DCP- Discharge Planning Updated by [id number]: Lynda Stuart on 01/15/19 3:[address] Spoke with patient regarding oxygen company she would like to use, she states she doesn't care. States she spoke with her brother and he states it doesn't matter. I reviewed the companies available and she chooses [employer]. I spoke with RT and asked for a room air sat in the morning. CM will continue to follow and assist with discharge planning/needs. DCP- Discharge Planning Updated by [id number]: Lynda Stuart on 01/12/19 1:[address] Dr. Ortega concerning discharge planning. Dr. Ortega states she probably will be discharged on Tuesday and will write in progress note what nebulizer meds she will need ordered. I have a room air oxygen saturation, but it will need repeated since it will be >48 hours. CM will continue to follow and assist with discharge planning/needs. DCP- Discharge Planning Updated by [email or web address]: Alecia Dennis on 01/08/19 12:[address] Patient Name: AFIA ESCOBAR Admission Status: ER Accout number: [id number] Admission Date: 01-08-2019 : 1950 Admission Diagnosis: Attending: ASHISH PEDRO Current LOS: 1 Anticipated DC Date: 01-10-2019 Planned Disposition: Home Primary Insurance: MEDICARE A & B Discharge Planning Comments: CM met with patient and her brother to complete initial dc planning assessment. CM educated patient on the CM role and verbal consent given by patient to complete assessment. Patient lives at home with her brother and reports she requires assistance with all of her ADL's. She reports she is wheelchair bound and does not ambulate. Patient currently has [facility] and wishes to resume at discharge. CM spoke to [facility] and notified her of patients admission. PAIGE form signed by patient's brother for resumption of Home Health. Signed form placed in chart and signed form given to patient. Patient also has cg services through [employer]. They assist her 5 days a week for 2-3 hours a day. Patient's brother made them aware she is being admitted into the hospital. At discharge patient plans to return home with her brother and feels this is a safe discharge. Patient denied further known discharge needs at this time. CM will continue to follow and will assist as needed with dc plans/needs. Geochemical Manager: Alecia Dennis RN, [facility] DCPIA - Discharge Planning Initial Assessment Updated by [id number]: Alecia Dennis on 01/08/19 1:01 pm * Is the patient Alert and Oriented? Yes * How many steps to enter\exit or inside your home? None * PCP Dr. Margarette Rosario [place] * Pharmacy [facility] in [place] * Preadmission Environment Home with Family * ADLs Total Dependent * Equipment Bedside Commode Rolling Walker Wheelchair * Other Equipment Patient reports she is wheelchair bound and that she requires assistance with all ADL's. * List name and contact numbers for known caregivers / representatives who currently or will assist patient after discharge: Marin Cho - brother - [phone] Bandar Chahal - sister - [phone] * Verbal permission to speak to the caregivers and representatives has been obtained from the patient. Yes * Community resources currently utilized Home Health Private Duty Care * Please name any agencies selected above. [employer] [phone] * Additional services required to return to the preadmission environment? No * Can the patient safely return to the preadmission environment? Yes * Has this patient been hospitalized within the prior 30 days at any hospital? No External Providers External Provider: OTHER-OTHER Next Contact Date: Service Request Date: Service Type: Resolution: Reviewer: Comments: Coverage Notice Reviewer: [id number] Abraham Lynda Narciso Notice Issued Date-Time: 01/15/2019 16:43 Notice Type: Patient Choice Letter Notice Delivered To: Patient Relationship to Patient: Self Thermoforming Operator Name: CLAYTON Delivery Method: HAND - Hand Delivered Shala Days: Prior Verbal Notification: Recipient Understood Notice: Yes Recipient Signature: Yes Med Rec Note Co-signed by Attending: Coverage Notice Comment: PAIGE FOR CLAYTON SIGNED Last DP export: 01/16/19 12:56 pm Patient Name: AFIA ESCOBAR Page 34334 at 1242 All edits/amendments must be made on the electronic document DICTATION DATE: 01/17/19 1242 SENIOR LOAN PROCESSOR: ALEX 01/17/19 1242 RPT#: [id number] DC DATE: STATUS: ADM IN [facility] [address] [place] [address] END OF REPORT
[2019-01-17] MEDS ORDERED: BROVANA15 MCG/2 M INH (14:20)
[2019-01-17] MEDS ORDERED: ATROVENT 0.02%2.5 ML UPD (14:20)
[2019-01-17] MEDS ORDERED: PULMICORT0.5 MG/21 UPD (14:21)
[2019-01-17] MEDS ORDERED: SINGULAIR10 MG PO (14:21)
[2019-01-17] MEDS ORDERED: PREDNISONE10 MG PO (14:23)
[2019-01-17 15:09] VITALS: BP 142/84
--- NOTE | 2019-01-17 15:17 | MORECARE ---
CASE MANAGEMENT DISCHARGE SUMMARY PATIENT: AFIA ESCOBAR UNIT: [id number] ADM DATE: 01/08/19 AGE: 68 : 49 SEX: F ROOM/BED: D.2239 AUTHOR: BERHANE BARNES PHYSICIAN: REFERRING PHYSICIAN: ASHISH PEDRO DO DATE OF SERVICE: 01/17/19 Discharge Plan Patient Name: AFIA ESCOBAR Facility: [facility]:[place] : 1950 Planned Disposition: Home Anticipated Discharge Date: 01/10/19 Discharge Date: Expected LOS: 2 Initial Reviewer: [email or web address] Initial Review Date: 01/08/2019 Generated: 01/17/19 4:17 pm Comments DCP- Discharge Planning Updated by [id number]: Lynda Narciso on 01/17/19 2:[address] Received order for discharge. She is in agreement for discharge. She is no longer wearing oxygen. I informed her that [facility] will arrange to have her oxygen level checked overnight for possible need for home oxygen. I informed her that she will need one box of each neb med from her pharmacy and then she will receive her nebulizer medications in the mail from [facility]. She will have [facility] resume services and I called them and spoke to Eva. She states she will need ambulance transfer home. I called her brother Marin at [phone] and informed him of discharge and also new medications sent to [facility]. He is also aware of nebulizer medications and to only get one box to last until mail order is received, voiced understanding. Declines need for home health, state just needs her personal care services. CM will continue to follow and assist with discharge planning/needs. DCP- Discharge Planning Updated by [email or web address]: Lynda Stuart on 01/17/19 11:[address] FAXED ORDER FOR MEDS AND OVERNIGHT OXYGEN SATURATION TO [facility]. SHE ALREADY HAS THE NEBULIZER IN THE ROOM. CM WILL CONTINUE TO FOLLOW AND ASSIST WITH DISCHARGE PLANNING/NEEDS. DCP- Discharge Planning Updated by [email or web address]: Lynda Stuart on 01/16/19 12:[address] Patient's room air oxygen saturation is 91% and does not qualify for home oxygen. Nebulizer ordered and [facility] called, faxed order and supporting documents to [facility]. CM will continue to follow and assist with discharge planning/needs. DCP- Discharge Planning Updated by [id number]: Lynda Stuart on 01/15/19 3:[address] Spoke with patient regarding oxygen company she would like to use, she states she doesn't care. States she spoke with her brother and he states it doesn't matter. I reviewed the companies available and she chooses [facility]. I spoke with RT and asked for a room air sat in the morning. CM will continue to follow and assist with discharge planning/needs. DCP- Discharge Planning Updated by [email or web address]: Lynda Stuart on 01/12/19 1:[address] Sp[address] Dr. Ortega concerning discharge planning. Dr. Ortega states she probably will be discharged on Tuesday and will write in progress note what nebulizer meds she will need ordered. I have a room air oxygen saturation, but it will need repeated since it will be >48 hours. CM will continue to follow and assist with discharge planning/needs. DCP- Discharge Planning Updated by [email or web address]: Aleciakendra Dennis on 01/08/19 12:[address] Patient Name: AFIA ESCOBAR Admission Status: ER Accout number: [id number] Admission Date: 01-08-2019 : 1950 Admission Diagnosis: Attending: ASHISH PEDRO Current LOS: 1 Anticipated DC Date: 01-10-2019 Planned Disposition: Home Primary Insurance: MEDICARE A & B Discharge Planning Comments: CM met with patient and her brother to complete initial dc planning assessment. CM educated patient on the CM role and verbal consent given by patient to complete assessment. Patient lives at home with her brother and reports she requires assistance with all of her ADL's. She reports she is wheelchair bound and does not ambulate. Patient currently has [facility] and wishes to resume at discharge. CM spoke to [employer] and notified her of patients admission. PAIGE form signed by patient's brother for resumption of Home Health. Signed form placed in chart and signed form given to patient. Patient also has cg services through [employer]. They assist her 5 days a week for 2-3 hours a day. Patient's brother made them aware she is being admitted into the hospital. At discharge patient plans to return home with her brother and feels this is a safe discharge. Patient denied further known discharge needs at this time. CM will continue to follow and will assist as needed with dc plans/needs. College Archivist: Alecia Dennis RN, [facility] DCPIA - Discharge Planning Initial Assessment Updated by [email or web address]: Alecia Dennis on 01/08/19 1:01 pm * Is the patient Alert and Oriented? Yes * How many steps to enter\exit or inside your home? None * PCP Dr. Pfeiffer - [place] * Pharmacy [facility] in [place] * Preadmission Environment Home with Family * ADLs Total Dependent * Equipment Bedside Commode Rolling Walker Wheelchair * Other Equipment Patient reports she is wheelchair bound and that she requires assistance with all ADL's. * List name and contact numbers for known caregivers / representatives who currently or will assist patient after discharge: Marin Cho - brother - [phone] Bandar Chahal - sister - [phone] * Verbal permission to speak to the caregivers and representatives has been obtained from the patient. Yes * Community resources currently utilized Home Health Private Duty Care * Please name any agencies selected above. [employer] [facility] [facility] [phone] * Additional services required to return to the preadmission environment? No * Can the patient safely return to the preadmission environment? Yes * Has this patient been hospitalized within the prior 30 days at any hospital? No Coverage Notice Reviewer: [id number] Abraham Stuart Notice Issued Date-Time: 01/15/2019 16:43 Notice Type: Patient Choice Letter Notice Delivered To: Patient Relationship to Patient: Self County Engineer Name: CLAYTON Delivery Method: HAND - Hand Delivered Shala Days: Prior Verbal Notification: Recipient Understood Notice: Yes Recipient Signature: Yes Med Rec Note Co-signed by Attending: Coverage Notice Comment: PAIGE FOR LINCBARBARA SIGNED Reviewer: [email or web address] Stuart Notice Issued Date-Time: 01/17/2019 15:02 Notice Type: IM Discharge Notice Notice Delivered To: Patient Relationship to Patient: County Engineer Name: Delivery Method: HAND - Hand Delivered Shala Days: Prior Verbal Notification: Recipient Understood Notice: Yes Recipient Signature: Yes Med Rec Note Co-signed by Attending: Coverage Notice Comment: IMM explained, signed, given, copy placed in MR Last DP export: 01/17/19 11:42 a Patient Name: AFIA ESCOBAR Page [id number] at 1517 All edits/amendments must be made on the electronic document DICTATION DATE: 01/17/191516 ROUTE PROCESS ADMINISTRATOR: ALEX 01/17/191516 RPT#: [id number] DC DATE: STATUS: ADM IN [facility] [address] [place] [address] END OF REPORT
--- NOTE | 2019-01-17 18:42 | NUR ---
PT DISCHARGED HOME BY AMBULANCE VIA STRETCHER. NO C/O PAIN. NO S/S OF ACUTE DISTRESS NOTED. DISCONTINUED IV, CATHETER TIP INTACT. PT DENIES ANYTHING FURTHER.
--- NOTE | 2019-01-18 07:14 | MORECARE ---
CASE MANAGEMENT DISCHARGE SUMMARY PATIENT: AFIA ESCOBAR UNIT: [id number] ADM DATE: 01/08/19 AGE: 68 : 49 SEX: F ROOM/BED: D.2239 AUTHOR: BERHANE BARNES PHYSICIAN: REFERRING PHYSICIAN: ASHISH PEDRO DO DATE OF SERVICE: 01/18/19 Discharge Plan Patient Name: AFIA ESCOBAR Facility: [facility]:[place] : 1950 Planned Disposition: Home Anticipated Discharge Date: 01/10/19 Discharge Date: 01/17/2019 Expected LOS: 2 Initial Reviewer: [email or web address] Initial Review Date: 01/08/2019 Generated: 01/18/19 8:14 am Comments DCP- Discharge Planning Updated by [email or web address]: Lynda Narciso on 01/17/19 2:[address] Received order for discharge. She is in agreement for discharge. She is no longer wearing oxygen. I informed her that [facility] [place] will arrange to have her oxygen level checked overnight for possible need for home oxygen. I informed her that she will need one box of each neb med from her pharmacy and then she will receive her nebulizer medications in the mail from [facility] [place]. She will have [facility] resume services and I called them and spoke to Eva. She states she will need ambulance transfer home. I called her brother Marin at [phone] and informed him of discharge and also new medications sent to [facility]. He is also aware of nebulizer medications and to only get one box to last until mail order is received, voiced understanding. Declines need for home health, state just needs her personal care services. CM will continue to follow and assist with discharge planning/needs. DCP- Discharge Planning Updated by [email or web address]: Lynda Stuart on 01/17/19 11:[address] FAXED ORDER FOR MEDS AND OVERNIGHT OXYGEN SATURATION TO [facility]. SHE ALREADY HAS THE NEBULIZER IN THE ROOM. CM WILL CONTINUE TO FOLLOW AND ASSIST WITH DISCHARGE PLANNING/NEEDS. DCP- Discharge Planning Updated by [id number]: Lynda Stuart on 01/16/19 12:[address] Patient's room air oxygen saturation is 91% and does not qualify for home oxygen. Nebulizer ordered and [facility] [place] called, faxed order and supporting documents to [facility] [place]. CM will continue to follow and assist with discharge planning/needs. DCP- Discharge Planning Updated by [id number]: Lynda Stuart on 01/15/19 3:[address] Spoke with patient regarding oxygen company she would like to use, she states she doesn't care. States she spoke with her brother and he states it doesn't matter. I reviewed the companies available and she chooses [facility] [place]. I spoke with RT and asked for a room air sat in the morning. CM will continue to follow and assist with discharge planning/needs. DCP- Discharge Planning Updated by [email or web address]: Lynda Stuart on 01/12/19 1:[address] Ortega concerning discharge planning. Dr. Ortega states she probably will be discharged on Tuesday and will write in progress note what nebulizer meds she will need ordered. I have a room air oxygen saturation, but it will need repeated since it will be >48 hours. CM will continue to follow and assist with discharge planning/needs. DCP- Discharge Planning Updated by [id number]: Alecia Dennis on 01/08/19 12:[address] Patient Name: AFIA ESCOBAR Admission Status: ER Accout number: [id number] Admission Date: 01-08-2019 : 1950 Admission Diagnosis: Attending: ASHISH PEDRO Current LOS: 1 Anticipated DC Date: 01-10-2019 Planned Disposition: Home Primary Insurance: MEDICARE A & B Discharge Planning Comments: CM met with patient and her brother to complete initial dc planning assessment. CM educated patient on the CM role and verbal consent given by patient to complete assessment. Patient lives at home with her brother and reports she requires assistance with all of her ADL's. She reports she is wheelchair bound and does not ambulate. Patient currently has 2,10E+07 Health Services and wishes to resume at discharge. CM spoke to eYeka and notified her of patients admission. PAIGE form signed by patient's brother for resumption of Home Health. Signed form placed in chart and signed form given to patient. Patient also has services through [employer]. They assist her 5 days a week for 2-3 hours a day. Patient's brother made them aware she is being admitted into the hospital. At discharge patient plans to return home with her brother and feels this is a safe discharge. Patient denied further known discharge needs at this time. CM will continue to follow and will assist as needed with dc plans/needs. Aprn: Alecia Dennis RN, [facility] DCPIA - Discharge Planning Initial Assessment Updated by [email or web address]: Alecia Dennis on 01/08/19 1:01 pm * Is the patient Alert and Oriented? Yes * How many steps to enter\exit or inside your home? None * PCP Dr. Margarette Rosario [place] * Pharmacy [facility] in [place] * Preadmission Environment Home with Family * ADLs Total Dependent * Equipment Bedside Commode Rolling Walker Wheelchair * Other Equipment Patient reports she is wheelchair bound and that she requires assistance with all ADL's. * List name and contact numbers for known caregivers / representatives who currently or will assist patient after discharge: Marin Cho - brother - [phone] Bandar Chahal - sister - [phone] * Verbal permission to speak to the caregivers and representatives has been obtained from the patient. Yes * Community resources currently utilized Home Health Private Duty Care * Please name any agencies selected above. 2,10E+07 [facility] [employer] [facility] [employer] [facility] [phone] * Additional services required to return to the preadmission environment? No * Can the patient safely return to the preadmission environment? Yes * Has this patient been hospitalized within the prior 30 days at any hospital? No Coverage Notice Reviewer: [id number] Abraham Stuart Notice Issued Date-Time: 01/15/2019 16:43 Notice Type: Patient Choice Letter Notice Delivered To: Patient Relationship to Patient: Self Underwriting Sales Representative Name: CLAYTON Delivery Method: HAND - Hand Delivered Shala Days: Prior Verbal Notification: Recipient Understood Notice: Yes Recipient Signature: Yes Med Rec Note Co-signed by Attending: Coverage Notice Comment: PAIGE FOR CLAYTON SIGNED Reviewer: [email or web address] Stuart Notice Issued Date-Time: 01/17/2019 15:02 Notice Type: IM Discharge Notice Notice Delivered To: Patient Relationship to Patient: Underwriting Sales Representative Name: Delivery Method: HAND - Hand Delivered Shala Days: Prior Verbal Notification: Recipient Understood Notice: Yes Recipient Signature: Yes Med Rec Note Co-signed by Attending: Coverage Notice Comment: IMM explained, signed, given, copy placed in MR Last DP export: 01/17/19 2:17 p Patient Name: AFIA ESCOBAR Page [phone] at 0714 All edits/amendments must be made on the electronic document DICTATION DATE: 01/18/19713 NETSUITE CONSULTANT: ALEX 01/18/19713 RPT#: [id number] DC DATE:01/17/19 STATUS: DIS IN [facility] [address] [place] [address] END OF REPORT
--- NOTE | 2019-01-19 15:12 | EC ---
PATIENT:AFIA ESCOBAR DATE OF SERVICE: 01/08/19 SEX: F MEDICAL RECORD: [id number] DATE OF : [birth year] LOCATION:D.MS [id number] AGE OF PATIENT: 68 ADMISSION DATE: 01/08/19 REFERRING PHYSICIAN: INTERPRETING PHYSICIAN: YG FOLEY MD ECHOCARDIOGRAM REPORT ECHO CHARGES 4 ECHO COMPLETE Date: 01/09/19 CLINICAL DIAGNOSIS: R/O CHF ECHOCARDIOGRAPHIC MEASUREMENTS (adult normal given) AC root (d.<3.7cm) 2.1 cm LV Septum d (<1.2 cm> 0.9 cm Valve Excursion 1.4 cm LV Septum (systole) 1.0 cm Left Atria (s.<4.0cm> 3.5 cm LVPW d(<1.2cm) 1.1 cm RV (d.<2.3cm) 2.4 cm LVPW (sytole) 2.3 cm LV diastole(<5.6CM) 5.0 cm MV E-F(>70mm/sec) cm LV systole 3.0 cm LVOT Diameter 1.8 cm MV exc.(>10mm) cm Est.ejection fraction (50-75%) % DOPPLER: LVIT cm/sec A 84 cm/sec E 48 cm/sec LA cm/sec RVSP 51.0 mmHg LVOT 103 cm/sec AOP1/2T m/s Asc. Ao 312 cm/sec RVOT 36 cm/sec RA cm/sec PA 44 cm/sec AV Gradient Peak 38.9 mmHg AV Mean 25.9 mmHg AV Area 0.6 cm MV Gradient Peak 4.2 mmHg MV Mean 2.6 mmHg MV Area cm COMMENTS: Cost Recorder: Aleksander BASILIO Radiosonde Specialist: 1 Dr. Foley TAPE# PACS Pericardial Effusion N DATE OF SERVICE: 01/09/2019 ECHOCARDIOGRAM DATE OF SERVICE: 01/09/2019 FINDINGS: 1. Left ventricular chamber size is within normal limits. Left ventricular systolic function is normal. Overall ejection fraction estimated at 55%. 2. Left atrium, right atrium, and right ventricle chamber sizes are within ECHOCARDIOGRAM REPORT [id number] AFIA ESCOBAR normal limits. 3. Valvular structures have normal structure and motion. 4. Doppler interrogation reveals mild tricuspid regurgitation, no other valvular insufficiency or stenosis. Pulmonary systolic pressure is elevated estimated at 51 mmHg. 5. No evidence of pericardial effusion or left ventricular thrombus. TRANSINT:[id number] Voice Confirmation ID: [id number] DOCUMENT ID: [id number] YG FOLEY MD at 1512 CC: [id number] DICTATION DATE: 01/10/19 0845 MGMT SPECIALIST: 01/10/19 1002 DIS IN 01/17/19 [place] [id number] [place] [id number]
[2019-01-19 16:11] LABS: IMMUNOGLOBULIN E 236 IU/mL (6-495)
== END 2019-01-17 18:44 | disposition home or self-care (01) | DRG 177 ==
LOC: D.ER 10:08 → D.MS 12:02 → D.EDHOLD 12:02 → D.MS 12:58
PROVIDERS: Family Medicine; Internal Medicine Pulmonary Disease; ADMIT Family Medicine; ATTEND Family Medicine
DX: J69.0 Pneumonitis due to inhalation of food and vomit (principal); R53.2 Functional quadriplegia; J44.1 Chronic obstructive pulmonary disease with (acute) exacerbation; J98.11 Atelectasis; E87.1 Hypo-osmolality and hyponatremia; J47.9 Bronchiectasis, uncomplicated; G70.9 Myoneural disorder, unspecified; K21.9 Gastro-esophageal reflux disease without esophagitis

== ENCOUNTER 2020-04-21 22:50 | Inpatient (IN) | payer MEDICARE ==
[~2020-04-21] VITALS: Ht 180.3 cm; Wt 112.0 kg
--- NOTE | ~2020-04-21 | HEMODYNAMI ---
PATIENT:AFIA ESCOBAR MEDICAL RECORD: [id number] : [birth year] LOCATION:[facility] D.2132 ADMISSION DATE: 04/21/20 Generatedon:04/22/20202:05 Patient name: AFIA ESCOBAR Patient #: [id number] SSN: [id number] : 1950 Date of study: 04/22/2020 Page: Of Hemodynamic Procedure Report Patient Data Patient Demographics First Name: AFIA Gender: Female Last Name: LUZ : 1950 [facility] Initial: Shavonne Age: 69 year(s) Patient #: [id number] Race: Black SSN: [id number] Additional ID: [id number] Contact details [address]: [address] [place] [address] [place] State: [place] City: [place] Zip code: [address] Past Medical History Allergies: No known allergies Admission Admission Data Admission Date: 04/21/2020 Admission Time: 22:50 Arrival Date: 04/22/2020 Arrival Time: 0:00 Admit Source: Emergency Insurance Payor: Medicare, department Medicaid Room #: D.2132 [facility] #: [id number] Height (in.): 65 BSA: 2.16 (m2) Height (cm.): 165.1 BMI: 41.1 (kg/m2) Weight (lbs.): 247 Weight (kg.): 112.04 Lab Results Lab Result Date: 04/22/2020 Lab Result Time: 0:00 Biochemistry Name Units Result Min Max BUN mg/dl 10 --(-*--)-- 7 18 Creatinine mg/dl 0.7 --(*---)-- 0.6 1.3 eGFR ml/min 88.03668 -*(----)-- 90 120 NONAFRICAN CBC Name Units Result Min Max Hemoglobin g/dl 11.8 *-(----)-- 13.5 17.5 Procedure Procedure Types Cath Procedure Diagnostic Procedure C [facility] w/Coronaries Sedation Charges Moderate Sedation up to 15 minutes Procedure Description Procedure Date Procedure Date: 04/22/2020 Procedure Start Time: 1:50 Procedure End Time: 2:00 Procedure Staff Name Function Conrad Sen MD Performing Physician Amy Kim RT Monitor Yamileth Park RN Nurse Rhea Colmenares RT Scrub Procedure Data Cath Procedure Fluoroscopy Diagnostic fluoroscopy Total fluoroscopy Time: 1 time: 1 min min Diagnostic fluoroscopy Total fluoroscopy dose: 306 dose: 306 mGy mGy Contrast Material Contrast Material Type Amount (ml) Isovue 300 45 Entry Location Entry Primary Successful Side Size Upsize Upsize Entry Closure Succes sful Closure Location (Fr) 1 (Fr) 2 (Fr) Remarks Device Remarks Femoral Right 6 Fr Exoseal artery Short Estimated blood loss: 10 ml Diagnostic catheters Device Type Used For End Catheter Placement MULTIPACK JL 4.0 5Fr Procedure catheter MULTIPACK 3DRC 5Fr Procedure catheter MULTIPACK Pigtail 5 Fr Ventriculography catheter Procedure Complications No complications Procedure Medications Medication Administration Route Dosage 0.9% NaCl I.V. 100 ml/hr Oxygen etCO2 Nasal cannula 2 l/min Lidocaine 2% added to field 20 Heparin Flush Bag added to field 2 bags (1000units/500ml NS) Versed I.V. 1 mg Fentanyl I.V. 25 mcg Hemodynamics Rest BSA: 2.16 (m2) HGB: 11.8 (g/dl) O2 Consumption: Estimated: 236.06 (ml/min) O2 Co nsumption indexed: Estimated:109.29 (ml/min/m) Heart Rate: 115 (bpm) Pressure Samples Time Site Value (mmHg) Purpose Heart Use Rate(bpm) 1:55 LV 87/16,16 Snapshot 115 1:56 LV 82/63,63 Snapshot 109 Snapshots Pre Cath Intra NCS Post Cath Vital Signs Time Heart Resp SPO2 etCO2 NIBP Rhythm Pain Sedation Rate (ipm) (%) (mmHg) (mmHg) Status Level (bpm) 1:45:52 121 23 100 11.2 Time NSR 0 (11) 10(A) Exceeded , No pain 1:50:24 122 24 100 14.9 79/56(67) NSR 0 (11) 10(A) , No pain 1:54:00 109 22 100 11.9 82/63(72) NSR 0 (11) 10(A) , No pain 1:58:59 124 13 100 18.6 Measuring NSR 0 (11) 10(A) , No pain 2:00:23 122 14 100 10.4 Time NSR 0 (11) 10(A) Exceeded , No pain Medications Time Medication Route Dose Verified Delivered Reason Notes Effe ctiveness by by 1:46:11 0.9% NaCl I.V. 100 Conrad Yamileth used for ml/hr [place] procedure RN 1:46:18 Oxygen etCO2 2 Conrad Yamileth used for Nasal l/min [place] procedure cannula RN 1:46:24 Lidocaine 2% added 20ml Conrad Martines for local to vial [facility] anesthetic field MD RIOJAS 1:46:28 Heparin Flush added 2 Cornad Conrad used for Bag to bags [facility] procedure (1000units/500ml field MD RIOJAS NS) 1:46:35 Versed I.V. 1 mg Conrad [address]th for [place] sedation MD JOHNSON 1:46:41 Fentanyl I.V. 25 Conrad Floresyla for mcg [place] sedation MD JOHNSONmechanic marine engine Log Time Note 1:20:40 Arrival Date: 04/22/2020 12:00:00 AM 1:21:05 Admit Source: Emergency department 1:21:10 Insurance Payor : Medicare, Medicaid 1:21:37 Patient Height : 65 inches 1:21:44 Patient Weight : 247 lbs 1:22:26 Lab Result : BUN 10 mg/dl 1:22:26 Lab Result : eGFR NONAFRICAN 88.50113 ml/min 1:22:26 Lab Result : Hemoglobin 11.8 g/dl 1:22:26 Lab Result : Creatinine 0.7 mg/dl 1:22:48 Procedure type changed to Cath procedure, Diagnostic procedure, LHC, LHC w/Coronaries, Sedation Charges, Moderate Sedation up to 15 minutes 1:23:50 Procedure Status Emergent Heart Cath (AMI). 1:23:53 Yamileth Park RN sent for patient. Start room use. 1:23:56 Time tracking: Call back (After hours or weekends) 1:24:01 Plan of Care:Hemodynamics will remain stable., Cardiac rhythm will remain stable., Comfort level will be maintained., Respiratory function will remain adequate., Patient/ family verbilizes understanding of procedure., Procedure tolerated without complication., Recovers from procedure without complications.. 1:24:08 Patient received from ED to CCL 1 Alert and oriented. Tansferred to table in Supine position. 1:24:10 Warm blankets applied, and jackie hugger turned on for patient comfort. 1:24:12 Correct patient and procedure confirmed by team. 1:24:19 H&P Date Dictated: 04/22/2020 Emergent; H&P N/A. 1:42:34 ECG and BP/O2 sat monitors applied to patient. 1:42:38 Vital chart was started 1:42:43 Baseline sample Acquired. 1:42:50 Full Disclosure recording started 1:42:54 Pre-op teaching completed and patient verbalized understanding. 1:43:07 Family unavailable. 1:43:10 Patient NPO since Midnight. 1:43:21 Patient allergic to No known allergies 1:43:24 Is the patient allergic to Iodine/contrast media? No. 1:43:25 Was the patient premedicated? Yes 1:43:28 Is patient on blood thinner?Unknown 1:43:32 Patient diabetic? Unknown. 1:43:40 Snore? Yes 1:43:42 Sleep apnea? Unknown 1:44:18 Patient pain scale 0/10 SOB. 1:44:34 IV patent on arrival in left forearm with 0.9% NaCl at KVO. 1:44:38 Lab results completed and on chart. 1:44:42 Alarms reviewed by R. N. 1:44:42 Sharps counted by scrub and verified by R.N. 1:44:46 Physician arrived 1:44:47 --------ALL STOP TIME OUT------ 1:44:48 Final Timeout: patient, procedure, and site verified with staff and physician. All members of the team are in agreement. 1:44:50 Left groin site verified by team. 1:44:55 Fire Safety Assessment: A--An alcohol-based skin anteseptic being used preoperatively., C--Open oxygen or nitrous oxide is being used., D--An ESU, laser, or fiber-optic light is being used. 1:45:01 Physical assessment completed. ASA score P 3 - A patient with severe systemic disease as per Conrad Sen MD. 1:45:04 2) 60-89 Mildly reduced kidney function, and other findings (as for stage 1) point to kidney disease. 1:45:12 Pt BP unable to read w/ BP cuff, BPs taken from AO pressure 1:45:14 Maximum allowable contrast dose (3.7 X eGFR X 0.75)250 ml. 1:45:19 Sedation plan: IV Moderate Sedation Medication:Versed, Fentanyl 1:46:11 0.9% NaCl 100 ml/hr I.V. was administered by Yamileth aPrk RN; used for procedure; Verbal order read back and verified. 1:46:18 Oxygen 2 l/min etCO2 Nasal cannula was administered by Yamileth Park RN; used for procedure; Verbal order read back and verified. 1:46:24 Lidocaine 2% 20ml vial added to field was administered by Conrad Sen MD; for local anesthetic; Verbal order read back and verified. 1:46:28 Heparin Flush Bag (1000units/500ml NS) 2 bags added to field was administered by Conrad Sen MD; used for procedure; Verbal order read back and verified. 1:46:35 Versed 1 mg I.V. was administered by Yamileth Park RN; for sedation; Verbal order read back and verified. 1:46:41 Fentanyl 25 mcg I.V. was administered by Yamileth Park RN; for sedation; Verbal order read back and verified. 1:50:24 Procedure started. 1:50:26 Zero performed for pressure channel P1 1:50:44 Local anesthetic to left femerol artery with Lidocaine 2% by Conrad Sen MD.INITIAL ACCESS ONLY 1:50:57 A 6 Fr Short sheath was inserted into the Right Femoral artery 1:51:12 Use device set Femoral Dx 1:51:14 ACIST Syringe (30492) opened to sterile field. 1:51:14 Bag Decanter (2002) opened to sterile field. 1:51:15 Medline Cath Pack ([id number]) opened to sterile field. 1:51:22 A MULTIPACK JL 4.0 5Fr catheter was advanced over the wire and used for Procedure. 1:51:36 LCA angiography performed. 1:51:41 ACIST Hand Control (39157) opened to sterile field. 1:51:42 ACIST Manifold (03873) opened to sterile field. 1:51:42 DIAGNOSTIC Multipack 5Fr catheter set (EX8385) opened to sterile field. 1:51:43 Tegaderm 4 x 4 (1626W) opened to sterile field. 1:51:50 EMERALD Guide Wire (291-504) opened to sterile field. 1:52:08 SHEATH 6FR [place] (PFT156) opened to sterile field. 1:52:17 Catheter removed. 1:53:07 A MULTIPACK 3DRC 5Fr catheter was advanced over the wire and used for Procedure. 1:53:10 RCA angiography performed. 1:53:52 Catheter removed. 1:54:47 A MULTIPACK Pigtail 5 Fr catheter was advanced over the wire and used for Ventriculography. 1:56:22 EF : 20 % 1:56:33 EXOSEAL 6Fr (EX600) opened to sterile field. 1:56:47 Catheter removed. 1:57:24 Sheath removed intact; hemostasis achieved with Exoseal to the Right Femoral artery. 1:57:27 Procedure ended.(Physican Out) 1:57:54 Fluoroscopy time 01.00 minutes. 1:57:59 Fluoroscopy dose: 306 mGy 1:57:59 Flurop Dose total: 306 1:58:04 Dose Area Product 36025 mGy/cm. 1:58:21 Contrast amount:Isovue 300 45ml. 1:58:23 Maximum allowable dose exceeded? No. 1:58:25 Sharps counted by scrub and verified by R.N. 1:58:28 Insertion/operative site no bleeding no hematoma. 1:58:58 Post-op/insertion site Left Femoral artery dressed using a 4 x 4 and Tegaderm. 1:59:00 Post Procedure Pulses reassessed and unchanged 1:59:05 Post-procedure physical assessment completed. ASA score P 3 - A patient with severe systemic disease as per Conrad Sen MD. 1:59:09 Post procedure rhythm: unchanged. 1:59:17 Estimated blood loss: 10 ml 1:59:20 Post procedure instruction explained to patient.Patient verbalizes understanding. 1:59:29 Patient needs reinforcement of post procedure teaching. 1:59:46 Procedure and supply charges have been captured, reviewed, submitted and are correct. 2:00:05 Procedure Complication : No complications 2:00:09 Vital chart was stopped 2:00:14 [facility] Findings: MVD- MD will discuss options w/ pt 2:00:19 See physician's report for complete and final results. 2:00:22 Report given to Med II. 2:00:29 Patient transfered to Med II with Bed. 2:00:32 Procedure ended. 2:00:32 Full Disclosure recording stopped 2:00:35 End room use (Document Last) 2:02:57 End room use (Document Last) 2:03:35 End room use (Document Last) Device Usage Item Name Manufacture Quantity Catalog Hospital Part Current Minimal L ot# / Number Charge Number Stock Stock Serial# Code ACIST Acist 1 91091 [id number] [id number] [id number] 20 Syringe Medical (90374) Systems Inc Bag Microtek 1 2001S 279007 89626 665404 5 Decanter Medical Inc. () Medline Medline 1 [id number] 429056 10743 328814 5 Cath Pack ([id number]) MULTIPACK Cardinal 1 825868 5 JL 4.0 5Fr Health catheter ACIST Hand Acist 1 58201 347310 191396 013779 5 Control Medical (56002) Systems Inc ACIST Acist 1 09877 823086 417132 616588 5 Manifold Medical (09506) Systems Inc DIAGNOSTIC Cardinal 1 QR0737 408603 30612 094720 30 Multipack Health 5Fr catheter set (WQ1366) Tegaderm 4 3M 1 1626W 715919 394217 879573 5 x 4 (1626W) EMERALD Cardinal 1 502-455 812717 656258 014371 5 Guide Wire Health (502-455) SHEATH 6FR Terumo 1 KJX838 049891 685185 954647 40 [place] (RHP290) MULTIPACK Cardinal 1 840287 5 3DRC 5Fr Health catheter MULTIPACK Cardinal 1 937325 5 Pigtail 5 Health Fr catheter EXOSEAL 6Fr Cardinal 1 EX600 769237 172973 352916 10 (EX600) Health Signature Audit [place] Stage Time Signature Unsigned Intra-Procedure 04/22/2020 Amy Kim 2:02:57 AM RT(R) Intra-Procedure 04/22/2020 Yamileth Park 2:03:35 AM RN Intra-Procedure 04/22/2020 Conrad Juan 2:05:46 AM Gato RIOJAS [address] [address]
[~2020-04-21 22:50] MED LIST changes: +ATROVENT 0.02%2.5 ML UPD; +BROVANA15 MCG/2 M INH; +FLUTICASONE PRO16 GM NASAL; +FOLIC ACID1 MG PO; +MUCINEX600 MG PO; +PAMELOR10 MG; +PREDNISONE10 MG PO; +PROTONIX40 MG PO; +PULMICORT0.5 MG/21 UPD; +SINGULAIR10 MG PO; +TOPROL XL25 MG PO; +VITAMIN D10000 UNI1 PO
[2020-04-21 23:26] LABS: HEMATOCRIT 38.5 % (36.0-48.0); HEMOGLOBIN 11.8 g/dL (12-16); LYMPHOCYTES 7.8 % (15-50); MCH 28.6 pg (26.0-34.0); MCHC 30.6 g/dL (31.0-37.0); MCV 93.2 fL (80.0-100.0); MEAN PLATELET VOLUME 9.5 fL (7.4-10.4); PLATELET COUNT 419 10x3/uL (130-400); RBC 4.13 10x6/uL (4.00-5.40); RDW 15.1 % (11.5-14.5); WBC 9.7 10x3/uL (4.8-10.8)
--- NOTE | 2020-04-21 23:31 | NUR ---
COVID SWAB COLLECTED- TO LAB.
--- NOTE | 2020-04-21 23:35 | NUR ---
URINE SENT TO LAB
[2020-04-21 23:38] LABS: CALC OSMOLALITY 272 mosm/kg (275-300); CALCIUM 8.6 mg/dL (8.5-10.1); CARBON DIOXIDE 31.9 mmol/L (21.0-32.0); CHLORIDE - SERUM 98 mmol/L (98-107); CREATININE - SERUM 0.7 mg/dL (0.6-1.3); POTASSIUM - SERUM 4.3 mmol/L (3.5-5.1); SODIUM 134 mmol/L (136-145); UREA NITROGEN 10 mg/dL (7-18); eGFR NON AFRICAN AMERICAN 88 mL/min (90-120)
[2020-04-21 23:40] LABS: GLUCOSE 205 mg/dL (74-106)
[2020-04-21 23:41] VITALS: BP 102/60
[2020-04-21 23:48] LABS: INR 1.11 (0.85-1.17); PROTIME 14.2 SECONDS (11.6-15.0)
[2020-04-22] VITALS (22 sets, daily range): BP systolic 63–130; BP diastolic 31–92; Ht 180.3 cm; Wt 112.0 kg
[2020-04-22 00:03] LABS: ALBUMIN 2.4 g/dL (3.4-5.0); ALKALINE PHOSPHATASE 59 U/L (30-120); ALT (SGPT) 24 U/L (10-68); BILIRUBIN - TOTAL 0.33 mg/dL (0.2-1.3); CKMB 3.4 U/L (0.0-3.6); CREATINE KINASE 69 UL (21-215); PRO BNP 3474 pg/mL (0-125); PROTEIN - SERUM 7.8 g/dL (6.4-8.2); TROPONIN-I 1.065 ng/mL (0.000-0.060)
--- NOTE | 2020-04-22 00:32 | NUR ---
PER EDP VERBAL ORDER, STOP INFUSION LACTATED RINGER'S AT THIS TIME. APPROX 1600ML INFUSED. IV SALINE LOCKED.
--- NOTE | 2020-04-22 00:44 | NUR ---
REFRACTORY SPECIALIST CONSENT AND BLOOD TRANSFUSION CONSENT OBTAINED AT THIS TIME. BELONGINGS IN BAG, AND PT CHANGED INTO GOWN.
--- NOTE | 2020-04-22 00:52 | NUR ---
SPOKE TO PAINTER [employer]- INSTRUCTED TO GIVE BENADRYL 50MG IV.
--- NOTE | 2020-04-22 01:28 | NUR ---
PT TO GANG MOWER OPERATOR, THEN 2131.
[2020-04-22 04:17] LABS: ALT (SGPT) 35 U/L (10-68); CALC OSMOLALITY 270 mosm/kg (275-300); CALCIUM 8.1 mg/dL (8.5-10.1); CARBON DIOXIDE 32.2 mmol/L (21.0-32.0); CHLORIDE - SERUM 100 mmol/L (98-107); CHOLESTEROL, TOTAL 179 mg/dL (0-200); CREATININE - SERUM 0.5 mg/dL (0.6-1.3); GLUCOSE 160 mg/dL (74-106); HDL CHOLESTEROL 45 mg/dL (32-96); LDL CHOLESTEROL 120 mg/dL (0-100); LDL-HDL RATIO 2.7 ratio (1.5-3.5); POTASSIUM - SERUM 5.7 mmol/L (3.5-5.1); SODIUM 134 mmol/L (136-145); TRIGLYCERIDE 71 mg/dL (30-200); UREA NITROGEN 12 mg/dL (7-18); eGFR NON AFRICAN AMERICAN > 90 mL/min (90-120)
[2020-04-22] MEDS ORDERED: VENTOLIN HFA [SP8 GM INH (07:36)
[2020-04-22] MEDS ORDERED: ALBUTEROL2.5 MG/3 M INH (07:36)
[2020-04-22] MEDS ORDERED: OMNICEF300 MG PO (07:37)
[2020-04-22] MEDS ORDERED: TESSALON PERLE100 MG PO (07:37)
[2020-04-22] MEDS ORDERED: CLARITIN 10 MG10 MG PO (07:39)
[2020-04-22] MEDS ORDERED: VITMAIN PO (07:39)
[2020-04-22] MEDS ORDERED: PAMELOR10 MG PO (07:39)
[2020-04-22] MEDS ORDERED: METHATREXATE (07:41)
[2020-04-22] MEDS ORDERED: FOLIC ACID1 MG PO (07:41)
[2020-04-22] MEDS ORDERED: PROTONIX40 MG PO (07:41)
[2020-04-22] MEDS ORDERED: PROZAC20 MG PO (07:41)
--- NOTE | 2020-04-22 07:46 | NUR ---
CALLED AND SPOKE WITH PHARMACIST AT [facility] AND GOT PT'S HOME MED LIST OVER THE PHONE.
--- NOTE | 2020-04-22 12:50 | NUR ---
ROUNDED WITH DR. CHAVEZ IN PT'S ROOM AND STATED TO HIM IVF WERE DC'D BUT PT HAS BEEN KEPT WITH NS AT 150ML/HR BECAUSE BP WILL BE SBP 100-110'S AND DBP WILL 40-50'S AND THEN DROP TO SBP 70-80'S. DR. CHAVEZ STATES TO KEEP PT ON IVF. I VERBALIZED UNDERSTANDING.
--- NOTE | 2020-04-22 13:17 | HP ---
PATIENT: AFIA ESCOBAR MEDICAL RECORD: [id number] ACCOUNT: [id number] LOCATION:[address] : [birth year] ADMISSION DATE: 04/21/20 PCP: No PCP HISTORY AND PHYSICAL EXAMINATION HISTORY OF PRESENT ILLNESS: A 69-year-old female with a history of hypertension, hyperlipidemia, presented to the ER with some dyspnea, fatigue, vague chest pain, somewhat constitutional symptomatology over the past 2 days, presented to the ER, was found to have ST elevation anterolaterally, tachycardia. X-ray showed some evidence of volume overload. Being brought to the pit laborer on an urgent basis. PAST MEDICAL HISTORY: 1. History of hypertension. 2. Hyperlipidemia. 3. Obstructive pulmonary disease. ALLERGIES: None known. MEDICATIONS: Chronically include metoprolol 25 b.i.d., Atrovent q.i.d., Brovana 15 mcg b.i.d., methotrexate 15 mg weekly, Pulmicort b.i.d., Mucinex 600 b.i.d., Singulair 10 at bedtime. PHYSICAL EXAMINATION: GENERAL: Somewhat uncomfortable appearing female in no acute distress, poor historian. VITAL SIGNS: Blood pressure 100/60, pulse 112 with occasional extrasystole. NECK: No bruits noted. HEART: Regular, tachycardic, extrasystoles on occasion, 2/6 systolic ejection murmur. LUNGS: Diminished air excursion. ABDOMEN: Soft, nontender. EXTREMITIES: Pulses are decreased, 1+. No edema. IMPRESSION: Acute anterior myocardial infarction. PLAN: For angiography, intervention based on above. TRANSINT:[id number] Voice Confirmation ID: [id number] DOCUMENT ID: [id number] RAF HAM MD at 1317 CC: [id number] DICTATION DATE: 04/22/20 0214 AUTOMOBILE DETAILER: 04/22/20 0232 [facility] [address] [facility], [facility]
--- NOTE | 2020-04-22 13:17 | OP ---
PATIENT NAME: AFIA ESCOBAR MEDICAL RECORD: [id number] :48 LOCATION:D. D.2132 ADMISSION DATE: SURGEON: RAF HAM MD DATE OF OPERATION: 04/22/2020 PROCEDURE: Left heart catheterization, selective coronary angiography, left femoral artery approach. CATHETERS: A 5-St Lucian sheath, 5/4 left and right Sammy, 5/4 pig. The procedure was well tolerated. The patient returned to the barclay, sheath removed. ExoSeal device placed. FINDINGS: Left ventriculography in 30-degree KELLY view shows mid anterior, mid inferior down to the anterior apical, inferior apical, and true apical region, hypo to akinesis, overall function reduced 20% to 25%. CORONARY ANATOMY: LEFT MAIN: Left main is free of disease. LAD: Free of disease in the diagonal system. CIRCUMFLEX: Free of disease in the marginal system. RIGHT CORONARY ARTERY: Dominant artery, gives rise to PDA, free of disease. IMPRESSION: These findings are consistent with takotsubo cardiomyopathy, unsure if this is viral induced, also explains ST elevation consistent with ST-elevation myocardial infarction and elevated cardiac enzymes. Blood pressure is somewhat marginal currently, precluding use of DEXTER, ARB. We will start digoxin, hopefully control rate somewhat, certainly could have underlying viral illness in the same setting. Further recommendations based on above. TRANSINT:[id number] Voice Confirmation ID: [id number] DOCUMENT ID: [id number] RAF HAM MD at 1317 CC: [id number] DICTATION DATE: 04/22/20215 CLEANING STAFF SUPERVISOR: 04/22/20 0258 [facility] [address] [place] [address]
--- NOTE | 2020-04-22 14:31 | NUR ---
SCD'S PLACED BILATERALLY ON PT'S LOWER LEGS. LEFT GROIN SOFT DRESSING C/D/I SHOWS NO S/S OF HEMATOMA.
--- NOTE | 2020-04-22 15:19 | NUR ---
pt had a 41 run of vtach. lindy dove with cardiology on floor. notified lindy and she spoke Myze. also stated to lindy an pt's sbp will be 100-100's to 60-80's within 10 minutes. she verbalized understanding and states she will look in chart.
--- NOTE | 2020-04-22 17:13 | NUR ---
REPORTED TO ME BY IMPORT/EXPORT ANALYST AND BILLY FROM [facility] CALLED HER AND STATED PT'S COVID TEST IS NEGATIVE AND PT CAN COME OFF ISOLATION. I VERBALIZED UNDERSTANDING. STATED THIS TO PT AND SHE VERBALIZED UNDERSTANDING.
--- NOTE | 2020-04-22 19:25 | NUR ---
PT IS CURRENTLY IN 2131 WAITING TO MOVE TO 2138...I SAW PT AT THIS TIME BED LOW AND LOCKED PT WAS NON VERBAL WITH ME IM TOLD NOW THAT SHE CAN NOT HEAR WELL AT ALL CALL LIGHT WITH PT
--- NOTE | 2020-04-22 20:53 | NUR ---
patient arrived to unit. bp 74/43. spo 100%. 128 hr. pateint unresponsive. does not follow commands. crackles in upper lobes and diminished lower lobes bilaterally. pupils round reactive 3mm. no response to sterjal rub. escobar in place. concentrated urine. bowel sounds active. 60% fio2 on bipap. skin cool and clammy. wnl for ethnicity. pedal pulses weak. palp pulses in upper extremities. no redness on bottom. l wrist IV. bolus fluid going in at this time. will continue to monitor.
--- NOTE | 2020-04-22 20:58 | NUR ---
unable to do srs at this time. patient unresponsive.
--- NOTE | 2020-04-22 23:19 | NUR ---
LALITO JOHNSON SPOKE WITH DR GONZALEZ AND TOLD ME TO PUT AN ORDER FOR CONSULT DUE TO STARTING LEVOPHED.
--- NOTE | 2020-04-22 23:40 | NUR ---
DR DAMON AT BEDSIDE. HANDED CONSENT TO BRENT JOHNSON.
[2020-04-23] VITALS (93 sets, daily range): BP systolic 72–136; BP diastolic 38–85
[2020-04-23 04:39] LABS: HEMATOCRIT 34.2 % (36.0-48.0); HEMOGLOBIN 9.9 g/dL (12-16); LYMPHOCYTES 6.1 % (15-50); MCH 28.4 pg (26.0-34.0); MCHC 28.9 g/dL (31.0-37.0); MEAN PLATELET VOLUME 9.6 fL (7.4-10.4); NEUTROPHILS 87.1 % (40-80); RBC 3.48 10x6/uL (4.00-5.40); RDW 14.9 % (11.5-14.5)
[2020-04-23 04:53] LABS: WBC 12.8 10x3/uL (4.8-10.8)
[2020-04-23 04:54] LABS: MCV 98.3 fL (80.0-100.0); PLATELET COUNT 323 10x3/uL (130-400)
[2020-04-23 05:09] LABS: CALC OSMOLALITY 283 mosm/kg (275-300); CALCIUM 7.5 mg/dL (8.5-10.1); CARBON DIOXIDE 28.1 mmol/L (21.0-32.0); CHLORIDE - SERUM 106 mmol/L (98-107); CKMB 10.8 U/L (0.0-3.6); CREATININE - SERUM 0.6 mg/dL (0.6-1.3); GLUCOSE 163 mg/dL (74-106); MAGNESIUM - SERUM 1.7 mg/dL (1.8-2.4); SODIUM 139 mmol/L (136-145); TROPONIN-I 1.676 ng/mL (0.000-0.060); UREA NITROGEN 18 mg/dL (7-18); eGFR NON AFRICAN AMERICAN > 90 mL/min (90-120)
--- NOTE | 2020-04-23 07:00 | NUR ---
REPORT RECEIVED. ASSESSMENT COMPLETE PER FLOW SHEET. HR NOTED TO BE 140 FREQUENT PVC'S EKG OBTAINED, UNDETERMINED RHYTHM. HR BACK TO 120 AT THIS TIME. SINUS TACK. WILL CONTINUE TO MONITOR
--- NOTE | 2020-04-23 09:20 | NUR ---
DR HAM AT BEDSIDE GIVEN DUPATE. STATED TO GET IN TOUCH WITH FAMILY AT THIS TIME. POLICE CALLED TO FIND FAMILY ALL CONTACT INFORMATION NOT WORKING. AWAITING CALL BACK.
--- NOTE | 2020-04-23 11:00 | NUR ---
REASSESSMENT COMPLETE PER FLOW SHEET. VSS. PT RESTING COMFORTABLY WILL CONTINUE TO MONTIOR
--- NOTE | 2020-04-23 13:33 | NUR ---
PAGED CARDIOLOGY AWAITING CALL BACK. SPOKE WITH FAMILY AT GREAT LENGTH.
--- NOTE | 2020-04-23 14:07 | NUR ---
SPOKE WITH INES WRIGHT REGAURDING PT STATUS AND FAMILY CONTACT INFORMATION. STATED WOULD SPEAK WITH FAMILY
--- NOTE | 2020-04-23 15:15 | NUR ---
REASSESSMETN COMPLETE PER FLOW SHEET. VSS. PT RESTING COMFORTABLY WILL CONTINUE TO MONTIOR
[2020-04-24] VITALS (37 sets, daily range): BP systolic 98–129; BP diastolic 52–75
--- NOTE | 2020-04-24 07:02 | NUR ---
REPORT RECEIVED. ASSESSMENT COMPLETE PER FLOW SHEET. VSS. PT RESTING COMFORTABLY WILL CONTINUE TO MONITOR
--- NOTE | 2020-04-24 09:40 | NUR ---
GARLAND WRIGHT AT BEDSIDE GIVEN UPDATE. SPOKE WITH FAMILY AT GREAT LENGHT. AWAITING CALL BACK FOR DECISION REGAURDING HOSPICE
--- NOTE | 2020-04-24 10:20 | NUR ---
DESIREE ZHAO CALLED BACK STATED FAMILY WISHES TO PROCEED WITH HOSPICE
--- NOTE | 2020-04-24 11:10 | NUR ---
DESIREE AT BEDSIDE. [facility] CONSULTED AWAITING ARRIVAL
--- NOTE | 2020-04-24 12:45 | NUR ---
[facility] AT BEDSIDE. ACCEPTED INTO HOME HOSPICE AT THIS TIME. DISCHARGE ORDERED.
--- NOTE | 2020-04-24 13:40 | NUR ---
DISCHARGE PAPERS SIGNED. DESIREE GERTRUDISALEXY STATED UNDERSTANDING. AMBULANCE CALLED STATED WOULD BE 30MIN TO 1 HR BEFORE ARRIVAL.
--- NOTE | 2020-04-24 14:56 | NUR ---
PT LEFT VIA AMBULANCE. VSS UPON LEAVING. FAMILY GIVEN UPDATE. HOSPICE CALLED. GIVEN UPDATE.
--- NOTE | 2020-04-24 17:22 | MORECARE ---
CASE MANAGEMENT DISCHARGE SUMMARY PATIENT: AFIA ESCOBAR UNIT: [id number] ADM DATE: 04/22/20 AGE: 69 : 49 SEX: F ROOM/BED: D.2308 AUTHOR: BERHANE BARNES PHYSICIAN: REFERRING PHYSICIAN: RAF HAM MD DATE OF SERVICE: 04/24/20 Discharge Plan Patient Name: [facility] [facility] 1950 Planned Disposition: Home with Hospice Anticipated Discharge Date: 04/24/20 Discharge Date: 04/24/2020 Expected LOS: 2 Initial Reviewer: [email or web address] Initial Review Date: 04/22/2020 Generated: 04/24/20 6:22 pm Patient Name: AFIA ESCOBAR Page [phone] at 1722 All edits/amendments must be made on the electronic document DICTATION DATE: 04/24/201721 FOUNDRY MELT SUPERVISOR: ALEX 04/24/201721 RPT#: [id number] DC DATE:04/24/20 STATUS: DIS IN [facility] [address] [place] [address] END OF REPORT
--- NOTE | 2020-04-24 17:30 | MORECARE ---
CASE MANAGEMENT DISCHARGE SUMMARY PATIENT: AFIA ESCOBAR UNIT: [id number] ADM DATE: 04/22/20 AGE: 69 : 49 SEX: F ROOM/BED: D.2308 AUTHOR: BERHANE BARNES PHYSICIAN: REFERRING PHYSICIAN: RAF HAM MD DATE OF SERVICE: 04/24/20 Discharge Plan Patient Name: AFIA ESCOBAR [facility] [facility] 1950 Planned Disposition: Home with Hospice Anticipated Discharge Date: 04/24/20 Discharge Date: 04/24/2020 Expected LOS: 2 Initial Reviewer: [email or web address] Initial Review Date: 04/22/2020 Generated: 04/24/20 6:29 pm Comments DCP- Discharge Planning Updated by [email or web address]: Bonnie Baird on 04/24/20 4:[address] CARDIOLOGY SPOKE WITH THE FAMILY THIS AM TO ADVISE OF POOR PROGNOSIS. GARLAND WRIGHT SPOKE W/ THE BROTHER, DESIREE REGARDING HOSPICE CARE. THE FAMILY CALLED BACK W/ DECISION FOR DISCHARGE TO HOME W/ [facility].PRIMARY NURSE SPOKE W/ HOSPICE. THEY VISITED WITH THE FAMILY. PATIENT WAS DISCHARGED TO HOME W/ [facility]. Last DP export: 04/24/20 4:22 p Patient Name: AFIA ESCOBAR Page [phone] at 1730 All edits/amendments must be made on the electronic document DICTATION DATE: 04/24/201728 VC++ DEVELOPER: ALEX 04/24/201728 RPT#: [id number] DC DATE:04/24/20 STATUS: DIS IN [facility] [address] [place] [address] END OF REPORT
--- NOTE | 2020-04-25 11:51 | OP ---
PATIENT NAME: AFIA ESCOBAR MEDICAL RECORD: [id number] :48 LOCATION:D.ICU D.2308 ADMISSION DATE:04/22/20 SURGEON: SEBASTIEN DAMON MD DATE OF OPERATION: 04/22/2020 PREOPERATIVE DIAGNOSES: 1. Cardiogenic shock, on dopamine. 2. Respiratory failure with chronic obstructive pulmonary disease, on BiPAP. 3. Coronary artery disease status post cardiac catheterization. 4. Need for IV access. POSTOPERATIVE DIAGNOSES: 1. Cardiogenic shock, on dopamine. 2. Respiratory failure with chronic obstructive pulmonary disease, on BiPAP. 3. Coronary artery disease status post cardiac catheterization. 4. Need for IV access. PROCEDURE: Right subclavian vein triple-lumen central venous line placement. SURGEON: Sebastien Damon MD REPORT OF PROCEDURE: The patient's right chest was prepped and draped in sterile fashion. A 5 cc of 1% lidocaine with epinephrine was infused into the surrounding tissues. A needle was used to cannulate the right subclavian vein and a guidewire was advanced with ease. Over this wire, a dilator was placed followed by the triple lumen catheter. The catheter aspirated nonpulsatile dark blood and flushed easily in all 3 ports. This was sutured in place with 3-0 silk ties and dressed appropriately. COMPLICATIONS: None. CONDITION: Stable. ANESTHESIA: Local MAC. BLOOD LOSS: Minimal. Procedure done in the ICU at the bedside. TRANSINT:[id number] Voice Confirmation ID: [id number] DOCUMENT ID: [id number] SEBASTIEN DAMON MD at 1151 CC: [id number] DICTATION DATE: 04/22/20 235 TIN ASSORTER: 04/23/20 0201 DIS IN 04/24/[address] [facility] [address] [place] [id number]
== END 2020-04-24 14:56 | disposition home health service (06) | DRG 280 ==
LOC: D.M2 22:50 → D.ER 22:50 → D.OPS 22:50 → D.M2 04-22 00:44 → D.OPS 04-22 08:24 → D.ICU 04-22 08:24 → D.M2 04-22 17:51 → D.ICU 04-22 20:30
PROVIDERS: Family Medicine; ADMIT Internal Medicine Interventional Cardiology; ATTEND Internal Medicine Interventional Cardiology
PROC: B2151ZZ Fluoroscopy of Left Heart using Low Osmolar Contrast (ICD-10-PCS; 2020-04-22)
PROC: 4A023N7 Measurement of Cardiac Sampling and Pressure, Left Heart, Percutaneous Approach (ICD-10-PCS; 2020-04-22)
PROC: 05H533Z Insertion of Infusion Device into Right Subclavian Vein, Percutaneous Approach (ICD-10-PCS; 2020-04-22)
PROC: B2111ZZ Fluoroscopy of Multiple Coronary Arteries using Low Osmolar Contrast (ICD-10-PCS; principal; 2020-04-22 12:30)
DX: I21.09 ST elevation (STEMI) myocardial infarction involving other coronary artery of anterior wall (principal); R57.0 Cardiogenic shock; J96.02 Acute respiratory failure with hypercapnia; J96.01 Acute respiratory failure with hypoxia; I51.81 Takotsubo syndrome; I10 Essential (primary) hypertension; E78.5 Hyperlipidemia, unspecified; J44.9 Chronic obstructive pulmonary disease, unspecified; I25.10 Atherosclerotic heart disease of native coronary artery without angina pectoris; R53.81 Other malaise